=== PATIENT | female | born 1965 | race Two or more races ===

== ENCOUNTER 2020-08-07 13:23 | Outpatient (REF) | payer OTHER, SELFPAY | END 2020-08-07 13:24 | disposition home or self-care (01) | LOC: HO.LAB 13:23 | PROVIDERS: PCP Internal Medicine; Visit Provider Internal Medicine | DX: Z20.828 Contact with and (suspected) exposure to other viral communicable diseases (principal) | CPT/HCPCS: C9803; U0003 ==

== ENCOUNTER → 2020-09-17 13:11 | Outpatient (BNVA) | payer OTHER, SELFPAY | PROVIDERS: PCP Internal Medicine; Visit Provider Internal Medicine Cardiovascular Disease | DX: R00.2 Palpitations (principal); I49.3 Ventricular premature depolarization; E11.65 Type 2 diabetes mellitus with hyperglycemia; Z79.84 Long term (current) use of oral hypoglycemic drugs; E66.9 Obesity, unspecified; Z68.41 Body mass index [BMI] 40.0-44.9, adult | CPT/HCPCS: 93005 ==

== ENCOUNTER → 2020-10-14 08:51 | Outpatient (REF) | payer OTHER, SELFPAY ==
--- NOTE | 2020-10-14 08:53 | CA_ITS ---
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 The visually estimated ejection fraction is between 55-60%. - No obvious valvular pathology seen on this study. Findings Left Ventricle Normal left ventricular cavity size. There is normal left ventricular wall thickness. The left ventricular systolic function is normal. The visually estimated ejection fraction is between 55-60%. There is no evidence of regional wall motion abnormalities. Diastolic function is normal for age. Right Ventricle Normal right ventricular cavity size and systolic function. Atria The left atrium is normal in size. The right atrium is normal in size. Aortic Valve There is a normal trileaflet aortic valve. There is no aortic valve stenosis. There is no aortic valve regurgitation. Mitral Valve The mitral valve appears normal. There is trace mitral valve regurgitation. There is no mitral valve stenosis. Pulmonic Valve The pulmonic valve was not well visualized. Tricuspid Valve Normal tricuspid valve structure. There is trace tricuspid valve regurgitation. The pulmonary artery systolic pressure is normal. Great Vessels The aortic annulus, sinuses of valsalva, and asc aorta are normal in size. Venous The inferior vena cava is normal in size and collapses greater than 50% with inspiration. Pericardium/Pleural There is no evidence of pericardial effusion. Prior Study Comparison Changes noted compared to prior study dated: 01/21/2018. Recommendations, Care & Conclusions No obvious valvular pathology seen on this study. Measurements 2D Linear Measurements IVSd: 0.86 0.6-0.9/0.6-1.0 cm LVIDd: 5.38 3.9-5.3/4.2-5.9 cm LVIDd Index: 2.45 2.4-3.2/2.2-3.1 cm/m2 LVIDs: 3.57 2.0-3.6 cm LVPWd: 0.93 0.7-1.1 cm Ao Root: 2.70 2.1-3.5 cm LA Diam: 3.10 2.7-3.8/3.0-4.0 cm LAIDs Index: 1.41 1.5-2.3 cm/m2 LV Mass: 220.92 67-162/88-224 g LV Mass Index: 100.42 43-95/49-115 g/m2 LVOT Diam: 2.20 3.0+(-)1.3 cm 2D Systolic Function EF 4C: 61.60 >55% EF 2C: 67.10 >55% Mitral Valve MV Pk E: 0.46 MV PK A: 0.82 MV Decel Time: 76.00 E/A: 0.60 E'Lateral: 8.03 E'Medial: 8.12 E/E' Med: 5.60 E/E' Lat: 5.70 PHT: 23.00 MVA PHT: 9.57 Decel [place]: 6.13 Aortic Valve AoV Pk Stephane: 1.14 AoV Pk Grad: 5.00 LVOT LVOT Pk Stephane: 0.87 LVOT Mn Stephane: 0.56 LVOT VTI: 0.19 LVOT Pk Grad: 3.00 LVOT Mn Grad: 2.00 LVOT Diam: 2.20 LVOT Area: 3.80 Diastolic Function MV Pk E: 0.46 MV Pk A: 0.82 E/A: 0.60 E'Medial: 8.12 E/E' Med: 5.60 E' Laterial: 8.03 E/E' Lat: 5.70 Tricuspid Valve TR Pk Stephane: 2.00 TR Pk Grad: 16.00 RA Press: 3.00 RVSP: 19.00 Great Vessels Aorta Ao Root-2D: 2.70 2.0-3.7 cm Ao Asc: 3.10 2.1-3.4 cm Updated in Other Vendor System with Status of Final Eliu Louise MD electronically signed on 10/14/2020 12:57:57 PM with status of Final
--- NOTE | 2020-10-14 08:53 | ECG_ITS ---
Hook-up date: 2020-10-14 09:53:00 Duration: 47:59:00 Test Indications: VENTRICULAR PREMATURE DEPOLARIZA Medications: 519509 QRS complexes 81314 Ventricular ectopics which represent 14 % of total QRS comp. 33 Supraventricular ectopics which represent <1 % of total QRS comp. * Paced QRS complexs which represent % of total QRS comp. VENTRICULAR ECTOPY 29033 Isolated 3 Bigeminal Cycles 92 Couplets 0 Runs 0 Beats in Runs 0 Beats LONGEST at 0 BPM at :: -- 0 Beats FASTEST at 0 BPM at :: -- SUPRAVENTRICULAR ECTOPY 33 Isolated 0 Couplets 0 Runs 0 Beats in Runs * Beats LONGEST at * BPM at :: -- * Beats FASTEST at * BPM at :: -- HEART RATES 60 MIN at 22:46:11 2020-10-14 78 AVG 126 MAX at 15:28:47 2020-10-14 LONGEST RR 1.5760 secs at 04:08:11 2020-10-15 S-T LEVELS Channel 1 - 128 mm at 09:53:00 2020-10-14 - 128 mm at 09:53:00 2020-10-14 Channel 2 - 128 mm at 09:53:00 2020-10-14 - 128 mm at 09:53:00 2020-10-14 Channel 3 - 128 mm at 02:91:21 -- - 128 mm at 02:91:21 Basic rhythm Normal sinus rhythm No long pause or profound bradycardia Frequent Premature ventricular complexes , 14% of total beats, unifocal Frequent couplets Patient did not report any symptoms in the diary Referred By: Antony Simpson Overread By: ANTONY SIMPSON MD
== END ==
LOC: HO.CARD 08:51
PROVIDERS: Visit Provider Internal Medicine Cardiovascular Disease
DX: I49.3 Ventricular premature depolarization (principal); R00.2 Palpitations; E11.65 Type 2 diabetes mellitus with hyperglycemia
CPT/HCPCS: 93225; 93226; 93306

== ENCOUNTER 2020-11-18 16:14 | Outpatient (REF) | payer OTHER, SELFPAY ==
--- NOTE | ~2020-11-18 | MM_ITS ---
EXAMINATION: MM SCREENING DIGITAL BREAST TOMOSYNTHESIS, BILATERAL CLINICAL INFORMATION: Screening. Asymptomatic. The lifetime risk of breast cancer based on the Tyrer-Cuzick Model is 8%. COMPARISON: Mammography: 11/13/2019, 08/22/2018 TECHNIQUE: Digital breast tomosynthesis is performed in both the craniocaudal and mediolateral oblique views along with computer-aided detection (CAD). Synthesized 2D images are generated from the tomosynthesis. FINDINGS: There are scattered areas of fibroglandular density (ACR BI-RADS breast composition Category b). There are no significant masses, abnormal calcifications, or other abnormalities. There are benign-appearing grouped coarse calcifications again seen posterior inferior right breast. MM/MM tomosynthesis screening BI IMPRESSION: No significant changes from prior studies. ASSESSMENT: BI-RADS 2: Benign RECOMMENDATION: Routine annual mammography screening. This patient's information was entered into a reminder system with a target due date for their next mammogram.
== END 2020-11-18 16:15 | disposition home or self-care (01) ==
LOC: HO.MAMMO 16:14
PROVIDERS: PCP Internal Medicine; Visit Provider Internal Medicine
DX: Z12.31 Encounter for screening mammogram for malignant neoplasm of breast (principal)
CPT/HCPCS: 77063; 77067

== ENCOUNTER 2021-01-02 08:54 | Outpatient (REF) | payer OTHER, SELFPAY ==
[2021-01-02 09:50] LABS: MANUAL DIFF FLAG NO
[2021-01-02 09:54] LABS: Basophils Percent Auto 0.4 % (0-2); Eosinophils Absolute Auto 0.2 X10*3/uL (0.0-0.4); Eosinophils Percent Auto 2.5 % (0-4); Hematocrit 38.8 % (37-47); Hemoglobin 12.8 g/dl (12.0-16.0); Imm Gran Abs Auto 0.02 X10*3/uL (0.00-0.03); Imm Gran Pct Auto 0.3 % (0.0-0.4); Lymphocytes Absolute Auto 3.2 X10*3/uL (1.2-4.9); Lymphocytes Percent Auto 46.5 % (20-40); Mean Corpuscular Hemoglobin 31.8 pg (27.0-33.0); Mean Corpuscular Volume 96.3 fL (80-98); Mean Platelet Volume 10.7 fL (9.4-12.3); Monocytes Absolute Auto 0.6 X10*3/uL (0.1-1.2); Monocytes Percent Auto 8.8 % (2-11); Neutrophils Absolute Auto 2.8 X10*3/uL (2.0-8.3); Neutrophils Percent Auto 41.5 % (45-73); Platelet Count 180 X10*3/uL (160-400); Red Blood Count 4.03 X10*6/uL (4.20-5.50); Red Cell Distribution Width 14.6 % (11.0-16.0); White Blood Count 6.8 X10*3/uL (4.8-10.8)
[2021-01-02 10:01] LABS: Glucose Urine UA NEG (NEG); Leukocyte Esterase Urine NEG (NEG); Nitrite Urine NEG (NEG); PH 5.5 (5.0-8.0); Specific Gravity - Urine >= 1.030 (1.005-1.025); Urine Blood NEG (NEG); Urine Ketones NEG (NEG); Urine Protein NEG (NEG-TRACE)
[2021-01-02 10:03] LABS: Estimated Average Glucose 140 mg/dL; Hemoglobin A1c % 6.5 %
[2021-01-02 10:13] LABS: Appearance Urine CLEAR; Color Urine YELLOW
[2021-01-02 10:16] LABS: Alanine Aminotransferase 28 U/L (0-31); Albumin Level 3.8 g/dL (3.5-5.0); Alkaline Phosphatase 90 U/L (39-117); Anion Gap 11 (12-20); Aspartate Amino Transferase 35 U/L (5-31); Bilirubin Total 0.6 mg/dL (0.0-1.0); Blood Urea Nitrogen 10 mg/dL (9-16); Calcium 9.3 mg/dL (8.4-10.2); Carbon Dioxide 29 mmol/L (22-29); Chloride 106 mmol/L (96-108); Cholesterol 191 mg/dL; Estimated Glomerular Filt Rate > 60; Glucose Random 144 mg/dL (60-115); HDL Cholesterol 65 mg/dL; LDL Cholesterol Calculated 93 mg/dl; Potassium 4.6 mmol/L (3.3-5.1); Sodium 141 mmol/L (135-145); Total Protein 6.6 g/dL (6.5-8.0); Triglycerides 169 mg/dL
[2021-01-02 10:19] LABS: Mucus Urine 1+ /LPF; RBC Urine 0 /HPF (0); Squamous Epithelial Cell Urine TRACE /LPF
[2021-01-02 10:40] LABS: Free T4 (Free Thyroxine) 1.04 ng/dL (0.71-1.85); Thyroid Stimulating Hormone 1.38 uIU/mL (0.32-4.0)
== END 2021-01-02 08:55 | disposition home or self-care (01) ==
LOC: HO.LAB 08:54
PROVIDERS: PCP Internal Medicine; Visit Provider Internal Medicine
DX: E78.00 Pure hypercholesterolemia, unspecified (principal); E11.65 Type 2 diabetes mellitus with hyperglycemia; R00.2 Palpitations
CPT/HCPCS: 36415; 80053; 80061; 81001; 83036; 84439; 84443; 85025

== ENCOUNTER → 2021-03-19 12:48 | Outpatient (BNVA) | payer OTHER, SELFPAY | PROVIDERS: PCP Internal Medicine; Visit Provider Nurse Practitioner Family ==

== ENCOUNTER 2022-01-14 11:04 | Outpatient (REF) | payer OTHER, SELFPAY ==
[2022-01-14 11:33] LABS: MANUAL DIFF FLAG NO
[2022-01-14 12:02] LABS: Basophils Percent Auto 0.5 % (0-2); Eosinophils Absolute Auto 0.1 X10*3/uL (0.0-0.4); Eosinophils Percent Auto 2.1 % (0-4); Hematocrit 41.5 % (37.0-47.0); Hemoglobin 13.7 g/dl (12.0-16.0); Imm Gran Abs Auto 0.02 X10*3/uL (0.00-0.03); Imm Gran Pct Auto 0.3 % (0.0-0.4); Lymphocytes Absolute Auto 2.5 X10*3/uL (1.2-4.9); Lymphocytes Percent Auto 40.7 % (20-40); Mean Corpuscular Hemoglobin 31.4 pg (27.0-33.0); Mean Corpuscular Volume 95.2 fL (80.0-98.0); Mean Platelet Volume 11.2 fL (9.4-12.3); Monocytes Absolute Auto 0.5 X10*3/uL (0.1-1.2); Monocytes Percent Auto 7.7 % (2-11); Neutrophils Percent Auto 48.7 % (45-73); Platelet Count 180 X10*3/uL (160-400); Red Blood Count 4.36 X10*6/uL (4.20-5.50); Red Cell Distribution Width 13.9 % (11.0-16.0); White Blood Count 6.1 X10*3/uL (4.8-10.8)
[2022-01-14 12:52] LABS: Alanine Aminotransferase 29 U/L (0-31); Albumin Level 3.8 g/dL (3.5-5.0); Alkaline Phosphatase 91 U/L (39-117); Anion Gap 14 (12-20); Aspartate Amino Transferase 59 U/L (5-31); Bilirubin Total 0.7 mg/dL (0.0-1.0); Blood Urea Nitrogen 11 mg/dL (9-16); Calcium 9.8 mg/dL (8.4-10.2); Carbon Dioxide 28 mmol/L (22-29); Chloride 103 mmol/L (96-108); Cholesterol 192 mg/dL; Estimated Glomerular Filt Rate > 60; Glucose Random 177 mg/dL (60-115); HDL Cholesterol 54 mg/dL; LDL Cholesterol Calculated 99 mg/dl; Potassium 5.6 mmol/L (3.3-5.1); Sodium 139 mmol/L (135-145); Triglycerides 197 mg/dL
[2022-01-14 12:55] LABS: Free T4 (Free Thyroxine) 1.15 ng/dL (0.71-1.85); Thyroid Stimulating Hormone 1.26 uIU/mL (0.32-4.0); Vitamin D 25-OH Total 34.9 ng/mL (>30)
[2022-01-14 13:20] LABS: Estimated Average Glucose 171 mg/dL; Hemoglobin A1c % 7.6 %
[2022-01-14 13:41] LABS: Folate 13.6 ng/mL (> or = 4.0); Vitamin B12 341 pg/mL (200-900)
== END 2022-01-14 11:05 | disposition home or self-care (01) ==
LOC: HO.LAB 11:04
PROVIDERS: PCP Internal Medicine; Visit Provider Internal Medicine
DX: E11.65 Type 2 diabetes mellitus with hyperglycemia (principal); I10 Essential (primary) hypertension; E78.00 Pure hypercholesterolemia, unspecified
CPT/HCPCS: 36415; 80053; 80061; 82043; 82306; 82607; 82746; 83036; 84439; 84443; 85025

== ENCOUNTER 2022-01-23 17:18 | Outpatient (REF) | payer OTHER, SELFPAY ==
[2022-01-23 17:49] LABS: Appearance Urine CLEAR; Color Urine YELLOW; Glucose Urine UA >=1000 MG/DL (NEG); Leukocyte Esterase Urine NEG (NEG); Nitrite Urine NEG (NEG); Specific Gravity - Urine 1.025 (1.005-1.025); Urine Blood NEG (NEG); Urine Ketones NEG (NEG); Urine Protein NEG (NEG-TRACE)
[2022-01-23 18:03] LABS: Squamous Epithelial Cell Urine 2+ /LPF
[2022-01-23 18:04] LABS: Mucus Urine 1+ /LPF; RBC Urine 0-2 /HPF (0); WBC Urine 0-2 /HPF (0-4)
== END 2022-01-23 17:19 | disposition home or self-care (01) ==
LOC: HO.LAB 17:18
PROVIDERS: PCP Internal Medicine; Visit Provider Internal Medicine
DX: R30.0 Dysuria (principal)
CPT/HCPCS: 81001

== ENCOUNTER 2022-04-23 16:36 | Outpatient (REF) | payer OTHER, SELFPAY ==
[2022-04-24 03:18] LABS: CT PCR NOT DETECTED (Not Detect.); NG PCR NOT DETECTED (Not Detect.)
[2022-04-24 09:22] LABS: BV Int Neg Control Negative (Negative); BV Int Pos Control Positive (Positive)
[2022-04-25 14:37] LABS: HPV mRNA E6/E7 rflx Not Detected (Not Detected)
== END 2022-04-23 16:37 | disposition home or self-care (01) ==
LOC: HO.LAB 16:36
PROVIDERS: Visit Provider Internal Medicine
DX: Z12.4 Encounter for screening for malignant neoplasm of cervix (principal); Z11.51 Encounter for screening for human papillomavirus (HPV); Z11.3 Encounter for screening for infections with a predominantly sexual mode of transmission
CPT/HCPCS: 87480; 87491; 87510; 87591; 87624; 87660; 88142

== ENCOUNTER 2022-05-04 14:16 | Outpatient (REF) | payer OTHER, SELFPAY ==
--- NOTE | ~2022-05-04 | MM_ITS ---
EXAMINATION: MM SCREENING DIGITAL BREAST TOMOSYNTHESIS, BILATERAL CLINICAL INFORMATION: Screening. Asymptomatic. The lifetime risk of breast cancer based on the Tyrer-Cuzick Model is 7%. COMPARISON: Mammography: 11/18/2020, 11/13/2019, 08/22/2018 TECHNIQUE: Digital breast tomosynthesis is performed in both the craniocaudal and mediolateral oblique views along with computer-aided detection (CAD). Synthesized 2D images are generated from the tomosynthesis. FINDINGS: There are scattered areas of fibroglandular density (ACR BI-RADS breast composition Category b). There is no interval mass or architectural abnormality or developing density. Grouped calcifications posterior central 5:30 o'clock right breast are slightly coarser, suggesting fibroadenomatous changes. There are no suspicious calcifications. The axilla and skin contours are unremarkable. MM/MM tomosynthesis screening BI IMPRESSION: No significant changes from prior exam. ASSESSMENT: BI-RADS 2: Benign RECOMMENDATION: Routine annual mammography screening. This patient's information was entered into a reminder system with a target due date for their next mammogram.
== END 2022-05-04 14:17 | disposition home or self-care (01) ==
LOC: HO.MAMMO 14:16
PROVIDERS: PCP Internal Medicine; Visit Provider Internal Medicine
DX: Z12.31 Encounter for screening mammogram for malignant neoplasm of breast (principal)
CPT/HCPCS: 77063; 77067

== ENCOUNTER 2022-08-17 09:14 | Outpatient (REF) | payer OTHER, SELFPAY | END 2022-08-17 09:15 | disposition home or self-care (01) | LOC: HO.LNP 09:14 | PROVIDERS: PCP Internal Medicine; Visit Provider Obstetrics & Gynecology | DX: R87.612 Low grade squamous intraepithelial lesion on cytologic smear of cervix (LGSIL) (principal) | CPT/HCPCS: 57454; 88305 ==

== ENCOUNTER 2023-04-29 16:18 | Outpatient (AMB) | payer OTHER, SELFPAY ==
[2023-04-29 16:36] VITALS: BP 124/76; PULSE 80; O2SAT 98; BMI 39.1
--- NOTE | 2023-04-29 16:36 | A.OFFPC_ITS ---
Vital Signs 04/29/23 16:36 Height 5 ft 6 in Weight 242 lb BMI 39.1 BP 124/76 Blood Pressure Location Lt brachial Position Sitting Pulse 80 Pulse Source Pulse Oximeter Pulse Oximetry (%) 98 Oxygen Delivery Method Room Air Intake Visit Reasons: Physical exam Allergies No Known Allergies [No Known Allergies*] Allergy (Verified 04/29/23 16:36) Medication List - Last Reconciled 04/29/23 by Demetrio Martinez MD blood pressure monitor (Blood Pressure Kit) As directed cholecalciferol (vitamin D3) 50 mcg PO DAILY 90 days dulaglutide (Trulicity) 3 mg (0.5 mL) subcut QWEEK flash glucose sensor (FreeStyle [place] 14 Day Sensor kit) As directed Tobacco use date assessed: 10/26/22 Dental Screening Dental Screen Date: 04/29/23 Did you have a dental visit in the last 12 months?: Yes Did you have a dental problem in the last 6 months where you did not have access to dental care?: No Was dental information given to patient?: Patient has dentist HPI Physical exam HPI Details 57-year-old morbidly obese female with diabetes mellitus hypertension hypercholesterolemia GERD coming in for physical exam last seen in October 2022. Patient has mammogram is due this month colonoscopy is up-to-date. Patient is here for physical exam. BS - so stopped metformin PFSH Medical History (Updated 04/29/23 @ 17:24 by Demetrio Martinez MD) Annual physical exam Breast cancer screening by mammogram Cervical cancer screening Fatty liver GERD (gastroesophageal reflux disease) Hypercholesterolemia Hyperkalemia Hypertension Mass of left lower leg Mild sleep apnea Obesity Palpitations PVC (premature ventricular contraction) Sebaceous cyst of eyelid Type 2 diabetes mellitus with hyperglycemia Vitamin D deficiency Surgical History History of cholecystectomy Family History (Updated 04/29/23 @ 16:38 by Andree Lehman CMA) Father No problems noted. Mother Hypertension Sister Schizophrenia Mental health disorder Paternal Grandfather No problems noted. Paternal Grandmother No problems noted. Maternal Grandmother No problems noted. Maternal Grandfather No problems noted. Social History (Updated 04/29/23 @ 17:29 by Demetrio Martinez MD) Housing: House Alcohol intake: current Alcohol intake frequency: holidays/special occasions only Patient Tobacco Use Status: Never used Tobacco e-Cigarette/Vaping Use: Never Used Second Hand Smoke Exposure: No service: No Current occupational status: employed Cognitive needs: No Hearing needs: No Vision needs: No Female Reproductive History Menstrual Age of Menarche: 11 Questionnaire PHQ-9 Over the last 2 weeks, how often have you been bothered by any of the following problems? 1. Little interest or pleasure in doing things: not at all 2. Feeling down, depressed, or hopeless: not at all 3. Trouble falling or staying asleep, or sleeping too much: not at all 4. Feeling tired or having little energy: not at all 5. Poor appetite or overeating: not at all 6. Feeling bad about yourself - or that you are a failure or have let yourself or your family down: not at all 7. Trouble concentrating on things, such as reading the newspaper or watching television: not at all 8. Moving or speaking so slowly that other people could have noticed. Or the opposite - being so fidgety or restless that you have been moving around a lot more than usual: not at all 9. Thoughts that you would be better off or of hurting yourself in some way: not at all Total score: 0 Depression Screening Interpretation: Negative Source: Developed by Drs. Jeff Howell, Donald Jefferson and colleagues, with an educational bhupinder from [employer]. Thrive Questionnaire Date Thrive assessed: 10/26/22 AUDIT C Alcohol Use Questionnaire (AUDIT-C) 1. How often do you have a drink containing alcohol?: Monthly or less 2. How many drinks containing alcohol do you have on a typical day when you are drinking?: 1 or 2 3. How often do you have six or more drinks on one occasion?: Never Total Score: 1 MARCELA-7 AMB Questionnaire MARCELA-7 Date MARCELA - 7 assessed: 10/26/22 Source: Developed by Drs. Jeff Howell, Donald Jefferson and colleagues, with an educational bhupinder from [employer]. Review of Systems Const Denies poor appetite and Denies weakness Eyes Denies no additional complaints ENT Reports Normal hearing present, Denies dizziness, Denies nasal congestion, Denies tinnitus and Denies sore throat Card Denies chest pain, Denies syncope, Denies rapid heart rate and Denies dyspnea Resp Denies cough and Denies dyspnea GI Denies change in stool character, Reports constipation, Denies diarrhea, Denies nausea and Denies vomiting Denies urinary frequency, Denies difficulty voiding and Denies dysuria Neuro Reports Normal hearing present, Denies confusion, Denies dizziness, Denies syncope and Denies weakness Psych Denies confusion Physical exam (Primary Care) Vital Signs: Last Vital Signs Pulse 80 04/29/23 16:36 BP 124/76 04/29/23 16:36 Pulse Ox 98 04/29/23 16:36 Oxygen Delivery Method Room Air 04/29/23 16:36 BMI result Body Mass Index 39.1 Tobacco/Smoking Status: Tobacco use Status Tobacco use date assessed 10/26/22 04/29/23 16:39 Patient Tobacco Use Status Never used Tobacco 04/29/23 16:39 e-Cigarette/Vaping Use Never Used 04/29/23 16:39 PHQ-9: PHQ-9 Score PHQ-9: Total score 0 04/29/23 17:16 Depression Screening Interpretation: Negative Thrive Assessment: Date of Thrive Assessment Date Thrive assessed 10/26/22 04/29/23 16:39 Const General: No confusion Orientation/consciousness: No confusion HENMT Head: Yes normocephalic Ears: external ears normal and TM's normal bilaterally Face and sinus: Yes normal facial exam Mouth: moist mucous membranes Throat: Yes tonsils normal Eyes Conjunctivae: conjunctivae normal Pupils: Equal, round and reactive pupils present and Pupil accommodation reflex normal Direct Ophthalmoscopy: normal light reflex Neck Neck: No lymphadenopathy Thyroid: Thyroid normal Chest Chest palpation & inspection: normal inspection of the chest Resp Effort & Inspection: normal respiratory effort and no audible wheezes Auscultation: clear to auscultation bilaterally, no crackles, no wheezes and lung sounds not diminished Cardio Rate: regular rate Rhythm: regular rhythm Peripheral pulses: radial pulses present and dorsalis pedis present GI Palpation (GI): no masses Auscultation: normal bowel sounds and normoactive bowel sounds Rectal Exam - Female: deferred Skin General skin exam: no rashes or lesions noted Rashes: no rashes Neuro General: No confusion Cranial nerves: Yes Equal, round and reactive pupils present and Yes Normal hearing present Cognition (Neuro): normal cognition Gait exam (Neuro): Normal gait present Motor exam (neuro): 5/5 motor strength present throughout Deep tendon reflexes (DTR's): Right brachioradialis reflex intensity grade: 2+, Left brachioradialis reflex intensity grade: 2+, Right patellar reflex intensity grade: 2+ and Left patellar reflex intensity grade: 2+ Extrem General: No edema Results AMB Hemoglobin A1c AMB Hemoglobin A1c 6.6 % Last Edit by Andree Lehman CMA on 04/29/23 17 :16 Results Reviewed Results Reviewed: Laboratory Last Values Hgb A1c (Clinic) 6.6 % (4.0-6.0) H 04/29/23 16:39 Assessment and Plan Assessment & Plan (1) Annual physical exam: Code(s): Z00.00 - Encounter for general adult medical examination without abnormal findings (2) Type 2 diabetes mellitus with hyperglycemia: Comment: decline HENRIETTA inhibitor, EYE [facility] [place] [facility] doctor Code(s): E11.65 - Type 2 diabetes mellitus with hyperglycemia Qualifiers: Diabetes mellitus long-term insulin use: without buttermaker continuous churn use Qualified Code(s): E11.65 - Type 2 diabetes mellitus with hyperglycemia Plan: Decrease the amount of carbohydrate intake, pasta, bread, rice and potatoes are all sugar and that is aside from all the sweet stuff, remember that fruits are good but they are Sweet also. Hemoglobin A1c goal of less than 6.5 patient is presently on Trulicity (3) Obesity: Code(s): E66.9 - Obesity, unspecified Plan: Diet and exercise (4) Hypercholesterolemia: Code(s): E78.00 - Pure hypercholesterolemia, unspecified Plan: Avoid fried foods, chicken skin, eggs, butter margarine, pastries and meat. Be it pork or beef they have a lot of cholesterol LDL goal of less than 100 and triglyceride of less than 150 reminded the need to have blood work (5) Hypertension: Comment: Echo normal LV January 2018, echo normal LV September 2020 Holter normal Code(s): I10 - Essential (primary) hypertension Qualifiers: Hypertension type: essential hypertension Qualified Code(s): I10 - Essential (primary) hypertension Plan: Continue with blood pressure medication. Decrease salt intake and exercise presently on metoprolol (6) Fatty liver: Code(s): K76.0 - Fatty (change of) liver, not elsewhere classified Plan: Low-fat diet and exercise (7) GERD (gastroesophageal reflux disease): Code(s): K21.9 - Gastro-esophageal reflux disease without esophagitis Plan: Avoid the foods that causes that usually spicy foods, tomato products, juices, coffee, soda and foods that your sensitive to. After eating do not lie down, allow 3-4 hours before in lie down. And keep the head of bed above 30 degrees to avoid the acid from going up. (8) Generalized anxiety disorder: Code(s): F41.1 - Generalized anxiety disorder Orders: Orders AMB Hemoglobin A1c Today Z13.9 - Encounter for screening, unspecified Coding Level of Care Code Est Pt Prev Care 40-64y(65608) Diagnoses Annual physical exam Z00.00 Type 2 diabetes mellitus with hyperglycemia E11.65 Diabetes mellitus buttermaker continuous churn insulin use: without buttermaker continuous churn use Obesity E66.9 Hypercholesterolemia E78.00 Hypertension I10 Hypertension type: essential hypertension Fatty liver K76.0 GERD (gastroesophageal reflux disease) K21.9 Generalized anxiety disorder F41.1
== END 2023-04-29 17:48 | disposition home or self-care (01) ==
PROVIDERS: PCP Internal Medicine; Visit Provider Internal Medicine
DX: Z00.00 Encounter for general adult medical examination without abnormal findings (principal); E11.65 Type 2 diabetes mellitus with hyperglycemia; I10 Essential (primary) hypertension; K21.9 Gastro-esophageal reflux disease without esophagitis; E66.9 Obesity, unspecified; E78.00 Pure hypercholesterolemia, unspecified; K76.0 Fatty (change of) liver, not elsewhere classified; F41.1 Generalized anxiety disorder
CPT/HCPCS: 83036; 99396

== ENCOUNTER 2023-07-01 14:22 | Outpatient (AMB) | payer OTHER, SELFPAY ==
[2023-07-01 14:40] VITALS: BP 130/68; PULSE 63; O2SAT 98; BMI 38.6
--- NOTE | 2023-07-01 14:40 | A.OFFPC_ITS ---
Vital Signs 07/01/23 14:40 Height 5 ft 6 in Weight 239 lb BMI 38.6 BP 130/68 Blood Pressure Location Lt brachial Position Sitting Pulse 63 Pulse Source Pulse Oximeter Pulse Oximetry (%) 98 Oxygen Delivery Method Room Air Intake Visit Reasons: Follow up DM Allergies No Known Allergies [No Known Allergies*] Allergy (Verified 07/01/23 14:40) Medication List - Last Reconciled 07/01/23 by Demetrio Martinez MD blood pressure monitor (Blood Pressure Kit) As directed cholecalciferol (vitamin D3) 50 mcg PO DAILY 90 days dulaglutide (Trulicity) 3 mg (0.5 mL) subcut QWEEK 90 days flash glucose sensor (FreeStyle Maria Del Carmen 14 Day Sensor kit) As directed Tobacco use date assessed: 10/26/22 Dental Screening Dental Screen Date: 07/01/23 Did you have a dental visit in the last 12 months?: Yes Did you have a dental problem in the last 6 months where you did not have access to dental care?: No Was dental information given to patient?: Patient has dentist HPI Follow up DM HPI Details 58-year-old obese female with diabetes m ellitus hypercholesterolemia hypertension fatty liver GERD and generalized anxiety disorder last seen in April 2023. Patient is here for follow-up. Patient is due for mammogram and colonoscopy is still up-to-date.. Patient has been taking the Trulicity doing good and advised to eat healthier now and keep moving so that when we start taking of the medication if she is ready then she can maintain her weight. Otherwise discussed about blood work that needs to be done. [facility] Medical History Breast cancer screening by mammogram Cervical cancer screening Annual physical exam Mass of left lower leg Hyperkalemia Sebaceous cyst of eyelid Palpitations PVC (premature ventricular contraction) Mild sleep apnea GERD (gastroesophageal reflux disease) Fatty liver Hypertension Hypercholesterolemia Type 2 diabetes mellitus with hyperglycemia Vitamin D deficiency Obesity Surgical History History of cholecystectomy Family History Father No problems noted. Mother Hypertension Sister Schizophrenia Mental health disorder Paternal Grandfather No problems noted. Paternal Grandmother No problems noted. Maternal Grandmother No problems noted. Maternal Grandfather No problems noted. Social History Housing: House Alcohol intake: current Alcohol intake frequency: holidays/special occasions only Patient Tobacco Use Status: Never used Tobacco e-Cigarette/Vaping Use: Never Used Second Hand Smoke Exposure: No service: No Current occupational status: employed Cognitive needs: No Hearing needs: No Vision needs: No Female Reproductive History Menstrual Age of Menarche: 11 Questionnaire PHQ-9 Over the last 2 weeks, how often have you been bothered by any of the following problems? 1. Little interest or pleasure in doing things: not at all 2. Feeling down, depressed, or hopeless: not at all 3. Trouble falling or staying asleep, or sleeping too much: not at all 4. Feeling tired or having little energy: not at all 5. Poor appetite or overeating: not at all 6. Feeling bad about yourself - or that you are a failure or have let yourself or your family down: not at all 7. Trouble concentrating on things, such as reading the newspaper or watching television: not at all 8. Moving or speaking so slowly that other people could have noticed. Or the opposite - being so fidgety or restless that you have been moving around a lot more than usual: not at all 9. Thoughts that you would be better off or of hurting yourself in some way: not at all Total score: 0 Depression Screening Interpretation: Negative Depression Screening Done: Yes Source: Developed by Drs. Jeff Howell, Klaudia Ramirez, Donald Phillip and colleagues, with an educational bhupinder from [employer]. Thrive Questionnaire Date Thrive assessed: 10/26/22 AUDIT C Alcohol Use Questionnaire (AUDIT-C) 1. How often do you have a drink containing alcohol?: Monthly or less 2. How many drinks containing alcohol do you have on a typical day when you are drinking?: 1 or 2 3. How often do you have six or more drinks on one occasion?: Never Total Score: 1 MARCELA-7 AMB Questionnaire MARCELA-7 Date MARCELA - 7 assessed: 10/26/22 Source: Developed by Drs. Jeff Howell, Donald Jefferson and colleagues, with an educational bhupinder from [employer]. Physical exam (Primary Care) Vital Signs: Last Vital Signs Pulse 63 07/01/23 14:40 BP 130/68 07/01/23 14:40 Pulse Ox 98 07/01/23 14:40 Oxygen Delivery Method Room Air 07/01/23 14:40 BMI result Body Mass Index 38.6 Tobacco/Smoking Status: Tobacco use Status Tobacco use date assessed 10/26/22 07/01/23 14:44 Patient Tobacco Use Status Never used Tobacco 07/01/23 14:44 e-Cigarette/Vaping Use Never Used 07/01/23 14:44 PHQ-9: PHQ-9 Score PHQ-9: Total score 0 07/01/23 14:44 Depression Screening Interpretation: Negative Thrive Assessment: Date of Thrive Assessment Date Thrive assessed 10/26/22 07/01/23 14:44 Const General: alert; No acute distress Eyes Conjunctivae: conjunctivae normal Resp Auscultation: clear to auscultation bilaterally Cardio Rate: regular rate Rhythm: regular rhythm GI Inspection: Yes normal to inspection Extrem General: Yes normal to inspection and No edema Assessment and Plan Assessment & Plan (1) Type 2 diabetes mellitus with hyperglycemia: Comment: decline HENRIETTA inhibitor, [facility] Code(s): E11.65 - Type 2 diabetes mellitus with hyperglycemia Qualifiers: Diabetes mellitus correction insulin use: without correction use Qualified Code(s): E11.65 - Type 2 diabetes mellitus with hyperglycemia Plan: Decrease the amount of carbohydrate intake, pasta, bread, rice and potatoes are all sugar and that is aside from all the sweet stuff, remember that fruits are good but they are Sweet also. Hemoglobin A1c goal of less than 6.5 (2) Hypercholesterolemia: Code(s): E78.00 - Pure hypercholesterolemia, unspecified Plan: Avoid fried foods, chicken skin, eggs, butter margarine, pastries and meat. Be it pork or beef they have a lot of cholesterol LDL goal of less than 100 and triglyceride of less than 150. Patient is reminded about blood work (3) Hypertension: Comment: Echo normal LV January 2018, echo normal LV September 2020 Holter normal Code(s): I10 - Essential (primary) hypertension Qualifiers: Hypertension type: essential hypertension Qualified Code(s): I10 - Essential (primary) hypertension Plan: Continue with blood pressure medication. Decrease salt intake and exercise (4) Fatty liver: Code(s): K76.0 - Fatty (change of) liver, not elsewhere classified Plan: Low-fat diet and exercise (5) GERD (gastroesophageal reflux disease): Code(s): K21.9 - Gastro-esophageal reflux disease without esophagitis Plan: Avoid the foods that causes that usually spicy foods, tomato products, juices, coffee, soda and foods that your sensitive to. After eating do not lie down, allow 3-4 hours before in lie down. And keep the head of bed above 30 degrees to avoid the acid from going up. (6) Obesity: Code(s): E66.9 - Obesity, unspecified Plan: Keep active, diet and exercise Medications: Changed From dulaglutide (Trulicity) 3 mg (0.5 mL) subcut QWEEK 2 mL 3RF E11.65 - Type 2 diabetes mellitus with hyperglycemia To dulaglutide (Trulicity) 3 mg (0.5 mL) subcut QWEEK 90 days 6.5 mL 3RF E11.65 - Type 2 diabetes mellitus with hyperglycemia Refilled flash glucose sensor (FreeStyle Maria Del Carmen 14 Day Sensor kit) As directed 6 kits 3RF E11.65 - Type 2 diabetes mellitus with hyperglycemia, I10 - Essential (primary) hypertension Coding Level of Care Code Est Pt Level 4 (62840) Diagnoses Type 2 diabetes mellitus with hyperglycemia, without long-term current use of insulin E11.65 Diabetes mellitus correction insulin use: without correction use Hypercholesterolemia E78.00 Essential hypertension I10 Hypertension type: essential hypertension Fatty liver K76.0 GERD (gastroesophageal reflux disease) K21.9 Obesity E66.9
== END 2023-07-01 15:16 | disposition home or self-care (01) ==
PROVIDERS: PCP Internal Medicine; Visit Provider Internal Medicine
DX: E11.65 Type 2 diabetes mellitus with hyperglycemia (principal); E78.00 Pure hypercholesterolemia, unspecified; I10 Essential (primary) hypertension; K76.0 Fatty (change of) liver, not elsewhere classified; K21.9 Gastro-esophageal reflux disease without esophagitis; E66.9 Obesity, unspecified; Z68.38 Body mass index [BMI] 38.0-38.9, adult
CPT/HCPCS: 99214

== ENCOUNTER 2023-09-09 10:24 | Outpatient (REF) | payer OTHER, SELFPAY ==
[2023-09-16 07:53] LABS: HPV mRNA E6/E7 rflx Not Detected (Not Detected)
== END 2023-09-09 10:25 | disposition home or self-care (01) ==
LOC: HO.LNP 10:24
PROVIDERS: PCP Internal Medicine; Visit Provider Obstetrics & Gynecology
DX: Z01.419 Encounter for gynecological examination (general) (routine) without abnormal findings (principal); Z11.51 Encounter for screening for human papillomavirus (HPV)
CPT/HCPCS: 87624; 88142

== ENCOUNTER 2023-09-09 10:24 | Outpatient (AMB) | payer OTHER, SELFPAY ==
[2023-09-09 10:25] VITALS: BP 110/78; BMI 38.4
--- NOTE | 2023-09-09 10:25 | A.OFFVIS_ITS ---
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 No complaints. Last Pap/HPV was LSIL/HPV negative, colpo biopsy/ECC was done showed ELDER 1 Last Mammogram was BI-RADS 2 in 05/11 Last Colonoscopy was in 11/07, the recommendation was to repeat in 7 years [facility] Medical History Breast cancer screening by mammogram Cervical cancer screening Annual physical exam Mass of left lower leg Hyperkalemia Sebaceous cyst of eyelid Palpitations PVC (premature ventricular contraction) Mild sleep apnea GERD (gastroesophageal reflux disease) Fatty liver Hypertension Hypercholesterolemia Type 2 diabetes mellitus with hyperglycemia Vitamin D deficiency Obesity Surgical History History of cholecystectomy Family History Father No problems noted. Mother Hypertension Sister Schizophrenia Mental health disorder Paternal Grandfather No problems noted. Paternal Grandmother No problems noted. Maternal Grandmother No problems noted. Maternal Grandfather No problems noted. 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 Sexually active: Yes Sexual orientation: Straight/Heterosexual Gender identity: Female Cognitive needs: No Hearing needs: No Vision needs: No Female Reproductive History Menstrual Age of Menarche: 11 Menopause type: natural Total pregnancies: 4 Full term: 3 Number of Living Children: 3 Date of last pap smear: 04/24/22 History of abnormal pap smear: Yes (ELDER 1) Date of Mammogram: 05/04/22 Review of Systems Const All systems reviewed & are unremarkable except as noted in HPI and below Card Reports as per HPI Resp Reports as per HPI GI Reports as per HPI and Reports no additional complaints Reports as per HPI Physical Exam Vital Signs: BMI result Body Mass Index 38.4 Const General: cooperative, healthy appearing and comfortable Chest Chest palpation & inspection: normal inspection of the chest and normal palpation of entire chest wall Breast/axilla inspection: normal inspection of the breasts and normal inspection of the axillae Breast/axilla palpation: normal palpation of the breasts, normal palpation of the axillae and no axillary lymphadenopathy Resp Effort & Inspection: normal respiratory effort Auscultation: clear to auscultation bilaterally Percussion: percussion normal Cardio Palpation: normal PMI Rate: regular rate Rhythm: regular rhythm Heart sounds: no murmurs and no rubs Peripheral pulses: Peripheral pulses 2+ throughout GI Inspection: Yes normal to inspection Palpation (GI): Soft to palpation, nontender, no guarding, not rigid and No hepatosplenomegaly present Percussion: Yes normal to percussion Auscultation: normal bowel sounds Rectal Exam - Female: deferred General: Yes bladder normal to palpation External Female Exam: No lesion Speculum Exam - Vagina: normal appearance of the vagina, normal palpation, normal vaginal discharge and not erythematous Speculum Exam - Cervix: normal appearance of the cervix and normal palpation Bimanual exam- vagina & uterus: normal bimanual exam, normal palpation, uterine size normal, bladder normal to palpation, consistency normal and normal palpation Bimanual Exam- Adnexa, other: normal adnexae, no masses and no tenderness Assessment & Plan Assessment & Plan (1) Well woman exam: Comment: ELDER 1 in 05/11 Code(s): Z01.419 - Encounter for gynecological examination (general) (routine) without abnormal findings Plan: Co testing done. Counseled the patient about the recommended dietary allowance of 1200 mg of Calcium & 600 IU of vitamin D. Mammogram ordered. The patient was instructed to perform monthly self-breast exams and schedule annual exam in a year. All questions answered and the patient verbalized understanding. Orders: Orders MM screening mammo BI Today Z12.31 - Encounter for screening mammogram for malignant neoplasm of breast Coding Level of Care Code Est Pt Prev Care 40-64y(31061) Diagnoses Well woman exam Z01.419
== END 2023-09-09 10:56 | disposition home or self-care (01) ==
LOC: HO.HWS 10:24
PROVIDERS: PCP Internal Medicine; Visit Provider Obstetrics & Gynecology
DX: Z01.419 Encounter for gynecological examination (general) (routine) without abnormal findings (principal)
CPT/HCPCS: 99396

== ENCOUNTER 2023-09-29 14:40 | Outpatient (REF) | payer OTHER, SELFPAY | END 2023-09-29 14:41 | disposition home or self-care (01) | LOC: HO.LNP 14:40 | PROVIDERS: PCP Internal Medicine; Visit Provider Obstetrics & Gynecology | DX: R87.612 Low grade squamous intraepithelial lesion on cytologic smear of cervix (LGSIL) (principal) | CPT/HCPCS: 57454; 88305 ==

== ENCOUNTER 2023-09-29 14:40 | Outpatient (AMB) | payer OTHER, SELFPAY ==
--- NOTE | 2023-09-29 14:44 | A.OFFVIS_ITS ---
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: No Information Interpreted: non-clinical & clinical Inspector Air Carrier: Inspector Air Carrier Present (Terra CORONADO) Accompanied by: Self / Same As Patient Allergies No Known Allergies [No Known Allergies*] Allergy (Verified 09/29/23 14:54) Post menopausal: Yes HPI HPI Comments History of Present Illness Details Presenting for colposcopy for LGSIL on Pap PFSH Medical History Breast cancer screening by mammogram Cervical cancer screening Annual physical exam Mass of left lower leg Hyperkalemia Sebaceous cyst of eyelid Palpitations PVC (premature ventricular contraction) Mild sleep apnea GERD (gastroesophageal reflux disease) Fatty liver Hypertension Hypercholesterolemia Type 2 diabetes mellitus with hyperglycemia Vitamin D deficiency Obesity Surgical History History of cholecystectomy Family History Father No problems noted. Mother Hypertension Sister Schizophrenia Mental health disorder Paternal Grandfather No problems noted. Paternal Grandmother No problems noted. Maternal Grandmother No problems noted. Maternal Grandfather No problems noted. 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 Sexual orientation: Straight/Heterosexual Gender identity: Female Cognitive needs: No Hearing needs: No Vision needs: No Female Reproductive History Menstrual Age of Menarche: 11 Physical Exam Vital Signs: Last Vital Signs BP 122/76 09/29/23 14:49 BMI result Body Mass Index 38.4 Office Procedures Colposcopy Before the procedure was started discussed with the patient the procedure, alternatives & all the risks associated with the procedure (bleeding, infection, injury to vagina, bladder, vessels, possible need for transfusion with all its risks) then patient signed the consent Pap smear = LGSIL Speculum inserted, acetic acid used Colposcopy done Transformation zone seen, acetowhite lesions identified at 5+6+11+12 o?clock, cervical biopsies taken from 5+6+11+12 o?clock, ECC done afterwards. Vaginoscopy of the upper vagina showed no evidence of any aceto-white lesions Monsel solution used for hemostasis. The patient tolerated well . At the end the patient was instructed to call if temp>100.4, abdominal pain, n/v, bleeding; The patient was given the following instructions: nothing per vagina, no intercourse or bath tub use. All questions answered the patient verbalized understanding. Instructed the patient to make an appointment in 2 weeks for follow-up This note was generated with a voice recognition program. Some errors may have been overlooked during the review of this note. Sometimes these errors may affect the content or meaning of a given sentence. 26885-Wtiizcdee of cervix including upper vagina with biopsy and ECC Procedure code (CPT) selection complete Assessment & Plan Assessment & Plan (1) LGSIL on Pap smear of cervix: Code(s): R87.612 - Low grade squamous intraepithelial lesion on cytologic smear of cervix (LGSIL) Plan: Colposcopy done, see procedure note Orders: Orders AMB Colposcopy Today R87.612 - Low grade squamous intraepithelial lesion on cytologic smear of cervix (LGSIL) Coding Level of Care Code Procedure Only Diagnoses LGSIL on Pap smear of cervix R87.612 CPT Codes Colposcopy - CPT: 55218-Yaxnqrocb of cervix including upper vagina with biopsy and ECC ([id number])
[2023-09-29 14:49] VITALS: BP 122/76; BMI 38.4
== END 2023-09-29 15:03 | disposition home or self-care (01) ==
LOC: HO.HWS 14:40
PROVIDERS: PCP Internal Medicine; Visit Provider Obstetrics & Gynecology
DX: R87.612 Low grade squamous intraepithelial lesion on cytologic smear of cervix (LGSIL) (principal)
CPT/HCPCS: 57454

== ENCOUNTER 2023-10-13 15:56 | Outpatient (AMB) | payer OTHER, SELFPAY ==
--- NOTE | 2023-10-13 15:57 | MHC.OFFVIS ---
Intake Vital Signs 10/13/23 16:02 Height 5 ft 6 in Weight 238 lb 1.588 oz BMI 38.4 BP 124/82 Intake Visit Reasons: colpo results Allergies No Known Allergies [No Known Allergies*] Allergy (Verified 09/29/23 14:54) HPI HPI Comments History of Present Illness Details Presenting post colpo for follow-up. The patient is doing well with no complaints. The pathology showed the following: A. Endocervical curettage: Scant endocervical glandular epithelium; negative for dysplasia. B. Cervix, 5:00, biopsy: Scant endocervical glandular mucosa with inflammation, squamous metaplasia and biopsy site changes; negative for dysplasia. C. Cervix, 6:00, biopsy: Endocervical glandular mucosa with inflammation, squamous metaplasia and biopsy site changes; negative for dysplasia. D. Cervix, 11:00, biopsy: Scant endocervical glandular mucosa with inflammation and squamous metaplasia; negative for dysplasia. E. Cervix, 12:00, biopsy: Partially denuded endocervical glandular mucosa with inflammation, squamous metaplasia and biopsy site changes; negative for dysplasia [facility] Medical History Breast cancer screening by mammogram Cervical cancer screening Annual physical exam Mass of left lower leg Hyperkalemia Sebaceous cyst of eyelid Palpitations PVC (premature ventricular contraction) Mild sleep apnea GERD (gastroesophageal reflux disease) Fatty liver Hypertension Hypercholesterolemia Type 2 diabetes mellitus with hyperglycemia Vitamin D deficiency Obesity Surgical History History of cholecystectomy Family History Father No problems noted. Mother Hypertension Sister Schizophrenia Mental health disorder Paternal Grandfather No problems noted. Paternal Grandmother No problems noted. Maternal Grandmother No problems noted. Maternal Grandfather No problems noted. 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 Sexual orientation: Straight/Heterosexual Gender identity: Female Cognitive needs: No Hearing needs: No Vision needs: No Female Reproductive History Menstrual Age of Menarche: 11 Review of Systems Const All systems reviewed & are unremarkable except as noted in HPI and below Reports as per HPI and Reports no additional complaints GI Reports no additional complaints Reports no additional complaints Assessment & Plan Assessment & Plan (1) LGSIL on Pap smear of cervix: Comment: ELDER 1 in 05/11 Code(s): R87.612 - Low grade squamous intraepithelial lesion on cytologic smear of cervix (LGSIL) Plan: Discussed with the patient the pathology results of the colposcopy biopsies & endocervical curettage ( negative). Discussed with the patient the sensitivity specificity, positive and negative predictive value in detecting cervical cancer in addition discussed the regression, persistence and progression rates. Recommended co-testing in 12 months, if cytology and or HPV are abnormal will proceed was colposcopy biopsy and endocervical curettage, if lesions gets worse or stays persistent for 2 years will proceed with loop electric excision procedure. Instructions given to the patient to schedule a co test appointment in 1 year. All questions answered the patient verbalized understanding. Coding Level of Care Code Est Pt Level 3 (23689) Diagnoses LGSIL on Pap smear of cervix R87.612
[2023-10-13 16:02] VITALS: BP 124/82; BMI 38.4
== END 2023-10-13 16:13 | disposition home or self-care (01) ==
LOC: HO.HWS 15:56
PROVIDERS: PCP Internal Medicine; Visit Provider Obstetrics & Gynecology
DX: R87.612 Low grade squamous intraepithelial lesion on cytologic smear of cervix (LGSIL) (principal)
CPT/HCPCS: 99213

== ENCOUNTER → 2023-10-13 15:56 | Outpatient (BNVA) | payer OTHER, SELFPAY | PROVIDERS: PCP Internal Medicine; Visit Provider Obstetrics & Gynecology ==

== ENCOUNTER → 2023-10-15 15:30 | Outpatient (BNV) | payer OTHER, SELFPAY | PROVIDERS: PCP Internal Medicine; Visit Provider Radiology Diagnostic Radiology | DX: Z12.31 Encounter for screening mammogram for malignant neoplasm of breast (principal) | CPT/HCPCS: 77063; 77067 ==

== ENCOUNTER 2023-10-15 15:39 | Outpatient (REF) | payer OTHER, SELFPAY ==
--- NOTE | ~2023-10-15 | MM_ITS ---
EXAMINATION: MM SCREENING DIGITAL BREAST TOMOSYNTHESIS, BILATERAL CLINICAL INFORMATION: Screening. Asymptomatic. COMPARISON: Mammography: This study is compared with prior exams dating back to 2018. TECHNIQUE: Digital breast tomosynthesis is performed in both the craniocaudal and mediolateral oblique views along with computer-aided detection (CAD). Synthesized 2D images are generated from the tomosynthesis. FINDINGS: There are scattered areas of fibroglandular density (ACR BI-RADS breast composition Category b). There are no significant masses, abnormal calcifications, or other abnormalities. Few, benign calcifications are present in the right breast. MM/MM tomosynthesis screening BI IMPRESSION: No mammographic evidence of malignancy. ASSESSMENT: BI-RADS BI-RADS 2 - Benign Findings RECOMMENDATION: Routine annual mammography screening. 1 year F/U This examination should not preclude the clinical evaluation of a suspicious palpable abnormality. This patient's information was entered into a reminder system with a target due date for their next mammogram.
== END 2023-10-15 15:40 | disposition home or self-care (01) ==
LOC: HO.MAMMO 15:39
PROVIDERS: PCP Internal Medicine; Visit Provider Internal Medicine
DX: Z12.31 Encounter for screening mammogram for malignant neoplasm of breast (principal)
CPT/HCPCS: 77063; 77067

== ENCOUNTER 2024-03-30 12:44 | Outpatient (REF) | payer OTHER, SELFPAY ==
--- NOTE | ~2024-03-30 | XR_ITS ---
EXAMINATION: XR KNEE, RIGHT CLINICAL INFORMATION: Unilateral primary osteoarthritis right knee. COMPARISON: May 04, 2019 TECHNIQUE: AP standing view of bilateral knees as well as 2 views of the right knee. FINDINGS: AP standing view of the right knee demonstrates moderate medial compartment space narrowing with medial marginal osteophytes. Left knee: [id number]-[id number] joint effusion. Moderate tricompartmental osteophytes. Moderate narrowing of the medial and patellofemoral compartments. XR/XR knee RT 3V IMPRESSION: Moderate degenerative changes bilateral knees.
== END 2024-03-30 12:45 | disposition home or self-care (01) ==
LOC: HO.HOSX 12:44
PROVIDERS: Visit Provider Physician Assistant
DX: M17.11 Unilateral primary osteoarthritis, right knee (principal)
CPT/HCPCS: 73562

== ENCOUNTER 2024-03-30 15:08 | Outpatient (AMB) | payer OTHER, SELFPAY ==
--- NOTE | 2024-03-30 15:09 | A.OFFVIS_ITS ---
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 Patient reports bilateral knee pain with her right knee being the worse. States her pain is making it difficult to walk and stair use. Hx of cortisone injection to her right knee here at [facility] in 2019, states injection provided her with relief. She is requesting bilateral knee injections. Allergies sitagliptin [From Januvia] Adverse Reaction (Verified 03/30/24 15:23) unable to urinate Medication List - Last Reconciled 03/30/24 by Tino Thompson PA-C blood pressure monitor (Blood Pressure Kit) As directed blood-glucose meter,continuous (Dexcom G6 Residential Caregiver) As directed blood-glucose sensor (Dexcom G6 Sensor device) As directed blood-glucose transmitter (Dexcom G6 Transmitter device) As directed celecoxib (Celebrex) 200 mg PO BID 30 days cholecalciferol (vitamin D3) 50 mcg PO DAILY 90 days flash glucose sensor (FreeStyle Maria Del Carmen 14 Day Sensor kit) As directed semaglutide (Ozempic) 1 mg (0.75 mL) subcut QWEEK HPI HPI 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 She reports she has bilateral knee pain that is worse on her right knee. Her pain makes it difficult to ambulate and use stairs and wakes her up at night. She also experiences worsening limited ROM in her knees. She had a right knee injection in 2019 which provided her relief. She is interested in having a cortisone injection. She does have a history of diabetes. Her last A1c was 6.8 few months ago. [facility] Medical History Breast cancer screening by mammogram Cervical cancer screening Annual physical exam Mass of left lower leg Hyperkalemia Sebaceous cyst of eyelid Palpitations PVC (premature ventricular contraction) Mild sleep apnea GERD (gastroesophageal reflux disease) Fatty liver Hypertension Hypercholesterolemia Type 2 diabetes mellitus with hyperglycemia Vitamin D deficiency Obesity Surgical History History of cholecystectomy Family History Father No problems noted. Mother Hypertension Sister Schizophrenia Mental health disorder Paternal Grandfather No problems noted. Paternal Grandmother No problems noted. Maternal Grandmother No problems noted. Maternal Grandfather No problems noted. 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 Sexual orientation: Straight/Heterosexual Gender identity: Female Cognitive needs: No Hearing needs: No Vision needs: No Female Reproductive History Menstrual Age of Menarche: 11 Review of Systems Const All systems reviewed & are unremarkable except as noted in HPI and below Physical Exam Vital Signs: BMI result Body Mass Index 38.4 Const General: cooperative, healthy appearing, comfortable, no acute distress, well developed and alert Orientation/consciousness: patient oriented x3 HEENT Head: Yes normal to inspection, Yes normocephalic and Yes atraumatic Eyes General: appearance normal, both eyes and all related structures Resp Effort & Inspection: normal respiratory effort and able to speak in complete sentences Cardio Rate: regular rate Peripheral pulses: Peripheral pulses 2+ throughout GI Palpation (GI): Soft to palpation Skin Lesions: no lesions Rashes: no rashes Neuro General: patient oriented x3 Extrem Other: Right knee: Skin intact, no erythema or joint effusion. Tenderness along the medial and lateral joint line. Full ROM with crepitus. Negative Shayan?s. No ligamentous laxity. NVI. ? Results Reviewed Results Reviewed: Xrays were obtained in the office today and personally reviewed by me of the right knee show severe tricompartmental oa Assessment & Plan Assessment & Plan (1) Osteoarthritis of right knee: Code(s): M17.11 - Unilateral primary osteoarthritis, right knee Category: Medical Plan We discussed options which include PT, NSAIDs and injections. The patient will defer on the injection today and proceed with PT and NSAIDs. I did send a prescription of Celebrex to her pharmacy. If symptoms persist, she will contact me for an injection, otherwise, PRN. Orders: Orders XR knee RT 3V Today M17.11 - Unilateral primary osteoarthritis, right knee Medications: New celecoxib (Celebrex) 200 mg PO BID 60 caps 3RF 30 days Patient Instructions: Scribed for Tino Thompson PA-C, by Quan Rao medical technologist clinical, on 03/30/2024 at 3:00 PM EST.? I, Tino Thompson PA-C, have personally reviewed and agree with the information entered by the scribe. Coding Level of Care Code Global (99910) Diagnoses Osteoarthritis of right knee M17.11
[2024-03-30 15:27] VITALS: BMI 38.4
== END 2024-03-30 15:54 | disposition home or self-care (01) ==
PROVIDERS: PCP Internal Medicine; Visit Provider Physician Assistant
DX: M17.11 Unilateral primary osteoarthritis, right knee (principal)
CPT/HCPCS: 99214

== ENCOUNTER 2024-05-18 15:30 | Outpatient (AMB) | payer OTHER, SELFPAY ==
--- NOTE | 2024-05-18 15:32 | MHC.PC.OV ---
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 Accompanied by: Self / Same As Patient Allergies semaglutide [From Ozempic] Adverse Reaction (Unverified 05/18/24 15:39) Blurry Vision sitagliptin [From Januvia] Adverse Reaction (Verified 05/18/24 15:39) unable to urinate Medication List - Last Reconciled 05/18/24 by Demetrio Martinez MD blood pressure monitor (Blood Pressure Kit) As directed blood-glucose meter,continuous (Dexcom G6 Electronic Heat Seal Operator) As directed blood-glucose sensor (Dexcom G6 Sensor device) As directed blood-glucose transmitter (Dexcom G6 Transmitter device) As directed celecoxib (Celebrex) 200 mg PO BID 30 days cholecalciferol (vitamin D3) 50 mcg PO DAILY 90 days dulaglutide (Trulicity) 0.75 mg (0.5 mL) subcut QWEEK 30 days flash glucose sensor (FreeStyle Maria Del Carmen 14 Day Sensor kit) As directed semaglutide 0.25 mg (0.368 mL) subcut QWEEK 30 days Tobacco use date assessed: 05/18/24 Dental Screening Dental Screen Date: 05/18/24 Did you have a dental visit in the last 12 months?: Yes Did you have a dental problem in the last 6 months where you did not have access to dental care?: No Was dental information given to patient?: Patient has dentist HPI follow up HPI Details 58-year-old morbidly obese female with diabetes mellitus hypercholesterolemia hypertension fatty liver GERD last seen in June 2023. Patient's mammogram is due, colonoscopy is due. Review of the notes has been following up with orthopedics for the right knee pain advised PT and NSAIDs Celebrex. X-rays of the knee done shows moderate degenerative changes. had a reaction with semaglutide and better now with the trulicity. PAtient just started. no shots on the knee due to bs. celebrex is helping [facility] Medical History Breast cancer screening by mammogram Cervical cancer screening Annual physical exam Mass of left lower leg Hyperkalemia Sebaceous cyst of eyelid Palpitations PVC (premature ventricular contraction) Mild sleep apnea GERD (gastroesophageal reflux disease) Fatty liver Hypertension Hypercholesterolemia Type 2 diabetes mellitus with hyperglycemia Vitamin D deficiency Obesity Surgical History History of cholecystectomy Family History Father No problems noted. Mother Hypertension Sister Schizophrenia Mental health disorder Paternal Grandfather No problems noted. Paternal Grandmother No problems noted. Maternal Grandmother No problems noted. Maternal Grandfather No problems noted. 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 1. Little interest or pleasure in doing things: not at all 2. Feeling down, depressed, or hopeless: not at all 3. Trouble falling or staying asleep, or sleeping too much: not at all 4. Feeling tired or having little energy: not at all 5. Poor appetite or overeating: not at all 6. Feeling bad about yourself - or that you are a failure or have let yourself or your family down: not at all 7. Trouble concentrating on things, such as reading the newspaper or watching television: not at all 8. Moving or speaking so slowly that other people could have noticed. Or the opposite - being so fidgety or restless that you have been moving around a lot more than usual: not at all 9. Thoughts that you would be better off or of hurting yourself in some way: not at all Total score: 0 Depression Screening Interpretation: Negative Depression Screening Done: Yes Source: Developed by Drs. Jeff L. Klaudia Howell Kurt Kroenke and colleagues, with an educational bhupinder from [employer]. Thrive Questionnaire Date Thrive assessed: 05/18/24 I am a: Patient What is your living situation today?: I have a steady place to live Within the past 12 months, did the food you bought not last and you didn't have the money to get more?: Never true Within the past 12 months, did you worry whether your food would run out before you got money to buy more?: Never true THRIVE Score: 0 AUDIT C Alcohol Use Questionnaire (AUDIT-C) 1. How often do you have a drink containing alcohol?: Monthly or less 2. How many drinks containing alcohol do you have on a typical day when you are drinking?: 1 or 2 3. How often do you have six or more drinks on one occasion?: Never Total Score: 1 MARCELA-7 AMB Questionnaire MARCELA-7 Date MARCELA - 7 assessed: 05/18/24 Feeling nervous, anxious, or on edge: 0 = Not at all Not being able to stop or control worryin = Not at all Worrying too much about different things: 0 = Not at all Trouble relaxin = Not at all Being so restless that it is hard to sit still: 0 = Not at all Becoming easily annoyed or irritable: 0 = Not at all Feeling afraid as if something awful might happen: 0 = Not at all Total MARCELA-7 score (0-4 normal; 5-9 mild; 10-14 moderate; 15-21 severe): 0 Source: Developed by Drs. Jeff Howell, Donald Jefferson and colleagues, with an educational bhupinder from [employer]. MARCELA-7 Assessment Billing MARCELA-7 Assessment Tool: MARCELA-7 Assessment 34737 Physical exam (Primary Care) Vital Signs: Last Vital Signs Pulse 93 05/18/24 15:33 BP 128/80 05/18/24 15:33 Pulse Ox 96 05/18/24 15:33 Oxygen Delivery Method Room Air 05/18/24 15:33 BMI result Body Mass Index 40.8 Tobacco/Smoking Status: Tobacco use Status Tobacco use date assessed 05/18/24 05/18/24 15:43 Patient Tobacco Use Status Never used Tobacco 05/18/24 15:32 Tobacco use type Cigarette 05/18/24 15:43 e-Cigarette/Vaping Use Never Used 05/18/24 15:32 PHQ-9: PHQ-9 Score PHQ-9: Total score 0 05/18/24 15:43 Depression Screening Interpretation: Negative Thrive Assessment: Date of Thrive Assessment Date Thrive assessed 05/18/24 05/18/24 15:43 Const General: alert; No acute distress Eyes Conjunctivae: conjunctivae normal Resp Auscultation: clear to auscultation bilaterally Cardio Rate: regular rate Rhythm: regular rhythm GI Inspection: Yes normal to inspection Extrem General: Yes normal to inspection and No edema Results AMB Hemoglobin A1c AMB Hemoglobin A1c 9.6 % Last Edit by Ayala Hui CMA on 05/18/24 15:46 Results Reviewed Results Reviewed: Laboratory Last Values Hgb A1c (Clinic) 9.6 % (4.0-6.0) H 05/18/24 15:45 Assessment and Plan Assessment & Plan (1) Type 2 diabetes mellitus with hyperglycemia: Comment: decline HENRIETTA inhibitor, EYE [facility] Code(s): E11.65 - Type 2 diabetes mellitus with hyperglycemia Qualifiers: Diabetes mellitus buttermaker helper insulin use: without buttermaker helper use Qualified Code(s): E11.65 - Type 2 diabetes mellitus with hyperglycemia Plan: Decrease the amount of carbohydrate intake, pasta, bread, rice and potatoes are all sugar and that is aside from all the sweet stuff, remember that fruits are good but they are Sweet also. Hemoglobin A1c goal of less than 6.5. Patient has been prescribed Trulicity metformin (2) Hypercholesterolemia: Code(s): E78.00 - Pure hypercholesterolemia, unspecified Plan: Avoid fried foods, chicken skin, eggs, butter margarine, pastries and meat. Be it pork or beef they have a lot of cholesterol LDL goal of less than 100 and triglyceride of less than 150. Patient was advised to get blood work done (3) Fatty liver: Code(s): K76.0 - Fatty (change of) liver, not elsewhere classified Plan: Low-fat diet and exercise (4) GERD (gastroesophageal reflux disease): Code(s): K21.9 - Gastro-esophageal reflux disease without esophagitis Plan: Avoid the foods that causes that usually spicy foods, tomato products, juices, coffee, soda and foods that your sensitive to. After eating do not lie down, allow 3-4 hours before in lie down. And keep the head of bed above 30 degrees to avoid the acid from going up. (5) Generalized anxiety disorder: Code(s): F41.1 - Generalized anxiety disorder (6) Osteoarthritis of right knee: Code(s): M17.11 - Unilateral primary osteoarthritis, right knee Plan: Patient has met with Orthopedics and has advised physical therapy (7) Morbid obesity: Code(s): E66.01 - Morbid (severe) obesity due to excess calories Plan: Diet and exercise (8) Colon cancer screening: Code(s): Z12.11 - Encounter for screening for malignant neoplasm of colon Orders: Orders AMB Hemoglobin A1c Today E11.65 - Type 2 diabetes mellitus with hyperglycemia Referrals Gastroenterology Referral Z12.11 - Encounter for screening for malignant neoplasm of colon Medications: New blood sugar diagnostic (FreeStyle Lite Strips) As directed check the BS QD 100 ea 3RF E11.65 - Type 2 diabetes mellitus with hyperglycemia lancets (FreeStyle Lancets) As directed check BS QD 100 ea 3RF E11.65 - Type 2 diabetes mellitus with hyperglycemia blood-glucose meter (FreeStyle Lite Meter kit) As directed 1 ea 0RF E11.65 - Type 2 diabetes mellitus with hyperglycemia Changed From dulaglutide (Trulicity) 0.75 mg (0.5 mL) subcut QWEEK 30 days 2.5 mL 3RF E11.65 - Type 2 diabetes mellitus with hyperglycemia To dulaglutide 3 mg (0.5 mL) subcut QWEEK 30 days 2.5 mL 3RF E11.65 - Type 2 diabetes mellitus with hyperglycemia Refilled semaglutide 0.25 mg (0.368 mL) subcut QWEEK 30 days 3 mL 3RF E11.65 - Type 2 diabetes mellitus with hyperglycemia blood-glucose sensor (Dexcom G6 Sensor device) As directed 3 ea 12RF E10.9 - Type 1 diabetes mellitus without complications, E11.65 - Type 2 diabetes mellitus with hyperglycemia Discontinued flash glucose sensor (FreeStyle Maria Del Carmen 14 Day Sensor kit) Discontinued Reason: Doctor's Order As directed 6 kits 3RF E11.65 - Type 2 diabetes mellitus with hyperglycemia, I10 - Essential (primary) hypertension Coding Level of Care Code Est Pt Level 4 (66622) Diagnoses Type 2 diabetes mellitus with hyperglycemia, without long-term current use of insulin E11.65 Diabetes mellitus buttermaker helper insulin use: without mcc use Hypercholesterolemia E78.00 Fatty liver K76.0 GERD (gastroesophageal reflux disease) K21.9 Generalized anxiety disorder F41.1 Osteoarthritis of right knee M17.11 Morbid obesity E66.01 Colon cancer screening Z12.11 Additional Codes MARCELA-7 Assessment Billing - MARCELA-7 Assessment Tool: MARCELA-7 Assessment [id number] ([id number])
[2024-05-18 15:33] VITALS: BP 128/80; PULSE 93; O2SAT 96; BMI 40.8
== END 2024-05-18 16:15 | disposition home or self-care (01) ==
PROVIDERS: PCP Internal Medicine; Visit Provider Internal Medicine
DX: E11.65 Type 2 diabetes mellitus with hyperglycemia (principal); E66.01 Morbid (severe) obesity due to excess calories; Z68.41 Body mass index [BMI] 40.0-44.9, adult; E78.00 Pure hypercholesterolemia, unspecified; K76.0 Fatty (change of) liver, not elsewhere classified; K21.9 Gastro-esophageal reflux disease without esophagitis; F41.1 Generalized anxiety disorder; M17.11 Unilateral primary osteoarthritis, right knee; Z12.11 Encounter for screening for malignant neoplasm of colon
CPT/HCPCS: 83036; 99214

== ENCOUNTER 2024-07-27 16:28 | Outpatient (REF) | payer OTHER, SELFPAY ==
[2024-07-27 17:14] LABS: Appearance Urine Cloudy; Color Urine Dark Yellow; Glucose Urine UA Negative (Negative); Leukocyte Esterase Urine Moderate (2+) (Negative); Nitrite Urine Positive (Negative); UMIC TRIGGER UACC YES; Urine Blood Large (3+) (Negative); Urine Ketones Trace mg/dL (Negative); Urine Protein 30 (1+) mg/dL (Neg-Trace)
[2024-07-27 17:20] LABS: Bacteria Urine 3+ (None Seen); Hyaline Casts Urine 0-2 /LPF (0-2); RBC Urine >20 /HPF (0-2); UACC Culture Trigger YES; WBC Urine >50 /HPF (0-5)
== END 2024-07-27 16:29 | disposition home or self-care (01) ==
LOC: HO.LAB 16:28
PROVIDERS: PCP Internal Medicine; Visit Provider Internal Medicine
DX: R30.0 Dysuria (principal)
CPT/HCPCS: 81001; 87086; 87088; 87186

== ENCOUNTER 2024-08-14 15:02 | Outpatient (AMB) | payer OTHER, SELFPAY ==
[2024-08-14 15:07] VITALS: BP 130/82; PULSE 92; O2SAT 95; BMI 40.2
--- NOTE | 2024-08-14 15:07 | A.OFFPC_ITS ---
Vital Signs 08/14/24 15:07 Height 5 ft 6 in Weight 249 lb 0.2 oz BMI 40.2 BP 130/82 Blood Pressure Location Lt brachial Position Sitting Pulse 92 Pulse Source Pulse Oximeter Pulse Oximetry (%) 95 Oxygen Delivery Method Room Air Intake Visit Reasons: DM Allergies semaglutide [From Ozempic] Adverse Reaction (Verified 08/14/24 15:13) Blurry Vision sitagliptin [From Januvia] Adverse Reaction (Verified 08/14/24 15:13) unable to urinate Medication List - Last Reconciled 08/14/24 by Aline Huerta PA-C blood pressure monitor (Blood Pressure Kit) As directed blood sugar diagnostic (FreeStyle Lite Strips) As directed check the BS QD blood-glucose meter (FreeStyle Lite Meter kit) As directed blood-glucose meter,continuous (Dexcom G6 Laborer Driver) As directed blood-glucose sensor (Dexcom G6 Sensor device) As directed blood-glucose transmitter (Dexcom G6 Transmitter device) As directed celecoxib (Celebrex) 200 mg PO BID 30 days cholecalciferol (vitamin D3) 50 mcg PO DAILY 90 days dulaglutide 3 mg (0.5 mL) subcut QWEEK 30 days lancets (FreeStyle Lancets) As directed check BS QD semaglutide 0.25 mg (0.368 mL) subcut QWEEK 30 days Tobacco use date assessed: 05/18/24 Dental Screening Dental Screen Date: 05/18/24 HPI DM HPI Details 59-year-old female with past medical his tory of morbid obesity, diabetes mellitus, hypercholesterolemia, hypertension, fatty liver disease, GERD last seen April [address] Martinez coming in for follow up. Patient states she has been on her new dose of Trulicity for the last 3 months and has been able to get it weekly. Denies having any low blood sugars. She is interested in having a overhauler bus truck she does not know what foods she should be eating. [facility] Medical History Breast cancer screening by mammogram Cervical cancer screening Annual physical exam Mass of left lower leg Hyperkalemia Sebaceous cyst of eyelid Palpitations PVC (premature ventricular contraction) Mild sleep apnea GERD (gastroesophageal reflux disease) Fatty liver Hypertension Hypercholesterolemia Type 2 diabetes mellitus with hyperglycemia Vitamin D deficiency Obesity Surgical History History of cholecystectomy Family History Father No problems noted. Mother Hypertension Sister Schizophrenia Mental health disorder Paternal Grandfather No problems noted. Paternal Grandmother No problems noted. Maternal Grandmother No problems noted. Maternal Grandfather No problems noted. 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 How often do you have a drink containing alcohol?: Monthly or less 2. How many drinks containing alcohol do you have on a typical day when you are drinking?: 1 or 2 3. How often do you have six or more drinks on one occasion?: Never Total Score: 1 MARCELA-7 AMB Questionnaire MARCELA-7 Date MARCELA - 7 assessed: 05/18/24 Source: Developed by Drs. Jeff Howell, Klaudia Ramirez, Donald Phillip and colleagues, with an educational bhupinder from [employer]. Review of Systems Const Denies body aches, Denies chills, Denies fever(s) and Denies poor appetite Eyes Reports no additional complaints ENT Reports no additional complaints Card Denies chest pain, Denies lightheadedness and Denies dyspnea Resp Denies cough and Denies dyspnea GI Denies abdominal pain, Reports constipation, Denies diarrhea, Denies nausea and Denies vomiting Reports no additional complaints Musc Reports no additional complaints and Denies abnormal gait Skin/Breast Reports system reviewed and no additional complaints, except as documented Neuro Denies abnormal gait Psych Reports no additional complaints Physical exam (Primary Care) Vital Signs: Last Vital Signs Pulse 92 08/14/24 15:07 BP 130/82 08/14/24 15:07 Pulse Ox 95 08/14/24 15:07 Oxygen Delivery Method Room Air 08/14/24 15:07 BMI result Body Mass Index 40.2 Tobacco/Smoking Status: Tobacco use Status Tobacco use date assessed 05/18/24 08/14/24 15:13 Patient Tobacco Use Status Never used Tobacco 08/14/24 15:13 Tobacco use type Cigarette 08/14/24 15:13 e-Cigarette/Vaping Use Never Used 08/14/24 15:13 Thrive Assessment: Date of Thrive Assessment Date Thrive assessed 05/18/24 08/14/24 15:13 Const General: cooperative, healthy appearing, comfortable and no acute distress Orientation/consciousness: patient oriented x3 HENMT Head: Yes normocephalic Ears: hearing grossly normal bilaterally General nose exam: Normal external nose present Eyes General: appearance normal, both eyes and all related structures Conjunctivae: conjunctivae normal Neck Neck: Yes full ROM and Yes no lymphadenopathy Resp Effort & Inspection: normal respiratory effort Auscultation: clear to auscultation bilaterally, no crackles, no rales, no rhonchi and no wheezes Cardio Rate: regular rate Rhythm: regular rhythm Skin General skin exam: no rashes or lesions noted Neuro General: patient oriented x3 Gait exam (Neuro): Normal gait present Extrem General: Yes normal to inspection, Yes full ROM and No edema Psych Affect: normal affect Attitude: cooperative Insight: Good insight present (Psych) Judgement: Good judgement present (Psych) Results AMB Hemoglobin A1c AMB Hemoglobin A1c 7.6 % Last Edit by IVONNE Song on 08/14/24 15:22 Results Reviewed Results Reviewed: Laboratory Last Values Hgb A1c (Clinic) 7.6 % (4.0-6.0) H 08/14/24 08:22 Coding Level of Care Code Est Pt Level 3 (44326) Diagnoses Type 2 diabetes mellitus with hyperglycemia, without long-term current use of insulin E11.65 Diabetes mellitus director long term care insulin use: without director long term care use Morbid obesity E66.01 Essential hypertension I10 Hypertension type: essential hypertension Hypercholesterolemia E78.00 Assessment & Plan Assessment & Plan (1) Type 2 diabetes mellitus with hyperglycemia: Comment: decline HENRIETTA inhibitor, EYE [facility] Code(s): E11.65 - Type 2 diabetes mellitus with hyperglycemia Category: Medical Qualifiers: Diabetes mellitus director long term care insulin use: without director long term care use Qualified Code(s): E11.65 - Type 2 diabetes mellitus with hyperglycemia Plan: Decrease the amount of carbohydrates such as pasta, bread, rice, and potatoes and limit the amount of sweets. Although fruits are generally healthy they should be eaten in moderation as they are still high in sugar. Hemoglobin A1c goal of less than 7%. A1c 7.6 % today we will increase Trulicity at this time to 4.5 mg and follow up in 3 months. Nutrition referral placed today. (2) Morbid obesity: Code(s): E66.01 - Morbid (severe) obesity due to excess calories Category: Medical Plan: Healthy diet and regular exercise is encouraged. (3) Hypertension: Comment: Echo normal LV January 2018, echo normal LV September 2020 Holter normal Code(s): I10 - Essential (primary) hypertension Category: Medical Qualifiers: Hypertension type: essential hypertension Qualified Code(s): I10 - Essential (primary) hypertension Plan: Continue on current blood pressure medication. Avoid salt intake and encourage healthy diet and regular exercise. (4) Hypercholesterolemia: Code(s): E78.00 - Pure hypercholesterolemia, unspecified Category: Medical Plan: Avoid foods that are high in cholesterol such as red meat, fried foods, eggs and baked goods. Triglyceride goal of less than 150 and LDL goal of less than 100. Plan This note was constructed using voice recognition software. While every effort has been made to ensure accuracy and pilot plant technician, still areas may have been included sometimes these areas may affect the content or meeting of the given symptoms. Total time spent caring for the patient today was 20 minutes. This includes time spent before the visit reviewing the chart, time spent during the visit, and time spent after the visit and documentation. Orders: Orders AMB Hemoglobin A1c Today E11.65 - Type 2 diabetes mellitus with hyperglycemia Referrals Medical Nutrition Therapy Referral E11.65 - Type 2 diabetes mellitus with hyperglycemia Medications: Refilled blood-glucose transmitter (Dexcom G6 Transmitter device) As directed 1 ea 0RF E10.9 - Type 1 diabetes mellitus without complications, E11.65 - Type 2 diabetes mellitus with hyperglycemia
== END 2024-08-14 16:21 | disposition home or self-care (01) ==
PROVIDERS: PCP Internal Medicine
DX: E11.65 Type 2 diabetes mellitus with hyperglycemia (principal); E66.01 Morbid (severe) obesity due to excess calories; Z68.41 Body mass index [BMI] 40.0-44.9, adult; I10 Essential (primary) hypertension; E78.00 Pure hypercholesterolemia, unspecified

== ENCOUNTER → 2024-08-14 15:02 | Outpatient (BNVA) | payer OTHER, SELFPAY | PROVIDERS: PCP Internal Medicine | DX: E11.65 Type 2 diabetes mellitus with hyperglycemia (principal); E66.01 Morbid (severe) obesity due to excess calories; Z68.41 Body mass index [BMI] 40.0-44.9, adult; I10 Essential (primary) hypertension; E78.00 Pure hypercholesterolemia, unspecified | CPT/HCPCS: 83036 ==

== ENCOUNTER 2024-09-25 12:49 | Outpatient (AMB) | payer OTHER, SELFPAY ==
--- NOTE | 2024-09-25 13:05 | MHC.AMNUTRGE ---
VS Expanded 09/25/24 13:06 09/26/24 19:57 Height 5 ft 6 in 5 ft 6 in Weight 247 lb 5.738 oz 247 lb BMI 39.9 39.9 Intake Visit Reasons: T2DM/Confirmed Allergies semaglutide [From Ozempic] Adverse Reaction (Verified 09/26/24 13:49) Blurry Vision sitagliptin [From Januvia] Adverse Reaction (Verified 09/26/24 13:49) unable to urinate Nutrition Presentation Details: Pt presents for MNT for T2DM food frequency fruits: 3 /wk dairy: choosing lactose free most often vegetables: 3 times/wk fish : 2x/m starches > 20 /day pastries: 2 etoh: occ smoking: denies physical activity: ADL BS Monitoring Most Recent Diabetes Results: No Data to Display PIZ-Ojxifan-NxZully Equation Height: 5 ft 6 in Weight: 247 lb Resting Metabolic Rate: 1720.64 Calculated Activity Level: Sedentary Calories Needed to Maintain Weight: 2064.77 Diagnosis Nutrition problem #1: altered nutrition labs and food nutri know defi As related to (etiology) #1: diagnosis As evidenced by (sign/symptom) #1: knowledge deficit of diet [facility] Medical History (Updated 09/26/24 @ 14:42 by NATAN Patel) Well woman exam COVID-19 virus infection LGSIL on Pap smear of cervix Annual physical exam Right knee pain Colon cancer screening Breast cancer screening by mammogram Cervical cancer screening Mass of left lower leg Hyperkalemia Sebaceous cyst of eyelid Palpitations PVC (premature ventricular contraction) Mild sleep apnea GERD (gastroesophageal reflux disease) Fatty liver Hypertension Hypercholesterolemia Type 2 diabetes mellitus with hyperglycemia Vitamin D deficiency Obesity Surgical History (Updated 09/26/24 @ 14:44 by NATAN Patel) H/O colonoscopy History of cholecystectomy Family History Father No problems noted. Mother Hypertension Sister Schizophrenia Mental health disorder Paternal Grandfather No problems noted. Paternal Grandmother No problems noted. Maternal Grandmother No problems noted. Maternal Grandfather No problems noted. 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 Sexual orientation: Straight/Heterosexual Gender identity: Female Cognitive needs: No Hearing needs: No Vision needs: No Female Reproductive History Menstrual Age of Menarche: 11 Assessment & Plan Assessment & Plan (1) Type 2 diabetes mellitus with hyperglycemia: Code(s): E11.65 - Type 2 diabetes mellitus with hyperglycemia Category: Medical Qualifiers: Diabetes mellitus assisted insulin use: without termite exterminator use Qualified Code(s): E11.65 - Type 2 diabetes mellitus with hyperglycemia Plan: Wt: 112 Kg ( 10/13 ) Est kcal needs as per MSJ: 2100 (40% carb, 30% protein/fat) Est fluid needs as per 25-30 ml/d: 3400 Est prot per day as per 1 g/kg bw: 112 Recommend fiber intake : 8-10 g per day and gradually increase to 25-28 g per day for women and 35-38 g for men or as tolerated Recommend sodium intake per day : less than 2300 mg Educated patient on: ( R = reviewed V = verbalizes understanding N/R = needs review N/A = not applicable Food sources of carbohydrate, adequate serving sizes and its role in various health conditions: R Differences between complex carbohydrates a simple carbohydrates, role of fiber in diet: R V N/R Lean protein sources of foods: R V NR Differences between types of fats and role in diet (mono on saturated fat fatty acids, saturated fatty acids, trans fats): R Food sources of sodium in salt and healthy modifications for heart health in kidney health: R V R/V Vitamins and minerals: R V N/R Healthy plate method concept: R V N/R Physical activity: Benefits a precaution: R V N/R Hypoglycemia protocol (rule of 15): R V N/R Dietary prevention of Hyperglycemia: R Patient Instructions: Choose foods higher in fiber and lower calrorie : fruit/veg shakes, seeds see 2200 prasanna meal plan ideas high in fiber Coding Level of Care Code Nutr Indiv Intake (06102) Diagnoses Type 2 diabetes mellitus with hyperglycemia, without long-term current use of insulin E11.65 Diabetes mellitus termite exterminator insulin use: without assisted use Time Spent (min) 30
[2024-09-25 13:06] VITALS: BMI 39.9
[2024-09-27 10:36] VITALS: BMI 39.9
== END 2024-09-25 13:46 | disposition home or self-care (01) ==
PROVIDERS: PCP Internal Medicine; Visit Provider Dietitian, Registered
DX: E11.65 Type 2 diabetes mellitus with hyperglycemia (principal)

== ENCOUNTER → 2024-09-25 12:49 | Outpatient (BNVA) | payer OTHER, SELFPAY | PROVIDERS: PCP Internal Medicine; Visit Provider Dietitian, Registered | DX: E11.65 Type 2 diabetes mellitus with hyperglycemia (principal); Z71.3 Dietary counseling and surveillance | CPT/HCPCS: 97802 ==

== ENCOUNTER 2024-09-26 09:06 | Outpatient (REF) | payer OTHER, SELFPAY ==
[2024-09-27 11:20] LABS: HPV 16,18/45 See PAP report
== END 2024-09-26 09:07 | disposition home or self-care (01) ==
LOC: HO.LNP 09:06
PROVIDERS: PCP Internal Medicine; Visit Provider Obstetrics & Gynecology
DX: Z01.419 Encounter for gynecological examination (general) (routine) without abnormal findings (principal); Z11.51 Encounter for screening for human papillomavirus (HPV); Z72.89 Other problems related to lifestyle
CPT/HCPCS: 87626; 88175

== ENCOUNTER 2024-09-26 09:06 | Outpatient (AMB) | payer OTHER, SELFPAY ==
--- NOTE | 2024-09-26 09:09 | A.OFFVIS_ITS ---
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 No complaints. Last Pap/HPV was low-grade HAVEN, colpo biopsy ECC was negative Last Mammogram was BI-RADS 1 in 10/13 Last Colonoscopy was 7 years ago, the patient is scheduled to see GI today for a consult regarding screening colonoscopy [facility] Medical History (Updated 09/26/24 @ 10:01 by Juan Daniel Zepeda MD) Well woman exam COVID-19 virus infection LGSIL on Pap smear of cervix Annual physical exam Right knee pain Colon cancer screening Breast cancer screening by mammogram Cervical cancer screening Mass of left lower leg Hyperkalemia Sebaceous cyst of eyelid Palpitations PVC (premature ventricular contraction) Mild sleep apnea GERD (gastroesophageal reflux disease) Fatty liver Hypertension Hypercholesterolemia Type 2 diabetes mellitus with hyperglycemia Vitamin D deficiency Obesity Surgical History History of cholecystectomy Family History Father No problems noted. Mother Hypertension Sister Schizophrenia Mental health disorder Paternal Grandfather No problems noted. Paternal Grandmother No problems noted. Maternal Grandmother No problems noted. Maternal Grandfather No problems noted. 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 Sexual orientation: Straight/Heterosexual Gender identity: Female Cognitive needs: No Hearing needs: No Vision needs: No Female Reproductive History Menstrual Age of Menarche: 11 Total pregnancies: 5 Full term: 3 Ab spontaneous: 2 Date of last pap smear: 09/09/23 Date of Mammogram: 10/15/23 (bi rad 2) Review of Systems Const All systems reviewed & are unremarkable except as noted in HPI and below Card Reports as per HPI Resp Reports as per HPI GI Reports as per HPI and Reports no additional complaints Reports as per HPI Physical Exam Vital Signs: Last Vital Signs BP 128/80 09/26/24 09:15 BMI result Body Mass Index 39.9 Const General: cooperative, healthy appearing and comfortable Chest Chest palpation & inspection: normal inspection of the chest and normal palpation of entire chest wall Breast/axilla inspection: normal inspection of the breasts and normal inspection of the axillae Breast/axilla palpation: normal palpation of the breasts, normal palpation of the axillae and no axillary lymphadenopathy Resp Effort & Inspection: normal respiratory effort Auscultation: clear to auscultation bilaterally Percussion: percussion normal Cardio Palpation: normal PMI Rate: regular rate Rhythm: regular rhythm Heart sounds: no murmurs and no rubs Peripheral pulses: Peripheral pulses 2+ throughout GI Inspection: Yes normal to inspection Palpation (GI): Soft to palpation, nontender, no guarding, not rigid and No hepatosplenomegaly present Percussion: Yes normal to percussion Auscultation: normal bowel sounds Rectal Exam - Female: deferred General: Yes bladder normal to palpation External Female Exam: No lesion Speculum Exam - Vagina: normal appearance of the vagina, normal palpation, normal vaginal discharge and not erythematous Speculum Exam - Cervix: normal appearance of the cervix and normal palpation Bimanual exam- vagina & uterus: normal bimanual exam, normal palpation, uterine size normal, bladder normal to palpation, consistency normal and normal palpation Bimanual Exam- Adnexa, other: normal adnexae, no masses and no tenderness Assessment & Plan Assessment & Plan (1) Well woman exam: Comment: ELDER 1 in 05/11 LGSIL in 09/11 colpo biopsy negative Code(s): Z01.419 - Encounter for gynecological examination (general) (routine) without abnormal findings Category: Medical Plan: Co testing done. Counseled the patient about the recommended dietary allowance of 1200 mg of Calcium & 600 IU of vitamin D. Mammogram ordered. The patient is scheduled with GI today for a consult for screening colonoscopy . The patient was instructed to perform monthly self-breast exams and schedule annual exam in a year. All questions answered and the patient verbalized understanding. Orders: Orders MM tomosynthesis screening BI Today Z12.31 - Encounter for screening mammogram for malignant neoplasm of breast Coding Level of Care Code Est Pt Prev Care 40-64y(99617) Diagnoses Well woman exam Z01.419
[2024-09-26 09:15] VITALS: BP 128/80; BMI 39.9
== END 2024-09-26 10:09 | disposition home or self-care (01) ==
LOC: HO.HWS 09:06
PROVIDERS: PCP Internal Medicine; Visit Provider Obstetrics & Gynecology
DX: Z01.419 Encounter for gynecological examination (general) (routine) without abnormal findings (principal)
CPT/HCPCS: 99396; 99459

== ENCOUNTER 2024-09-26 13:34 | Outpatient (AMB) | payer OTHER, SELFPAY ==
[2024-09-26 13:39] VITALS: BP 124/58; PULSE 79; BMI 40.6
--- NOTE | 2024-09-26 13:39 | MHC.OFFVIS ---
Vital Signs 09/26/24 13:39 Height 5 ft 6 in Weight 251 lb 12.286 oz BMI 40.6 BP 124/58 L Blood Pressure Location Lt brachial Position Sitting Pulse 79 Intake Visit Reasons: Colonoscopy screening Intake Note: New patient in office today for colonoscopy screening. CC: Last colonoscopy about 7 years ago per patient here at [facility] [place]. She denies having any GI symptoms or concerns. Hospice Clinical Marketer Required: No Accompanied by: Self / Same As Patient Allergies semaglutide [From Ozempic] Adverse Reaction (Verified 09/26/24 13:49) Blurry Vision sitagliptin [From Januvia] Adverse Reaction (Verified 09/26/24 13:49) unable to urinate HPI HPI Colonoscopy screening: Details: 59-year-old female here for preprocedural meeting to discuss a screening colonoscopy. She is referred by Demetrio Martinez. PMX Morbid obesity ANNIE - pt denies never had a sleep study either Hypertension - pt denies High cholesterol - pt denies Diabetes Osteoarthritis right knee Anxiety Fatty liver Family history of colon polyps-mother - pt deniues * SURGICAL HISTORY Cholecystectomy Colonoscopy 2018-[place] small polyp that was lymphoid aggregates only * ALLERGIES Ozempic Januvia * [facility] LABS: No TODAY'S VISIT This is her second colonoscopy. PT DENIES ANNIE NEVER HAD A SLEEP STUDY ? computer error. She also denies HTN or high cholesterol. I advise her to ask her PCP about this. There are no prior problems with anesthesia or sedation. NO ID problems She had a lymphoid aggregate polyp removed in 2018 and her mother had colon polyps. She has a comment on a problem with numbness in her hands at night. I ordered an x-ray of her cervical spine since her Phalen's test is negative for carpal tunnel and she can pursue this with her primary care provider. [facility] Medical History (Updated 09/26/24 @ 14:42 by NATAN Patel) Well woman exam COVID-19 virus infection LGSIL on Pap smear of cervix Annual physical exam Right knee pain Colon cancer screening Breast cancer screening by mammogram Cervical cancer screening Mass of left lower leg Hyperkalemia Sebaceous cyst of eyelid Palpitations PVC (premature ventricular contraction) Mild sleep apnea GERD (gastroesophageal reflux disease) Fatty liver Hypertension Hypercholesterolemia Type 2 diabetes mellitus with hyperglycemia Vitamin D deficiency Obesity Surgical History (Updated 09/26/24 @ 14:44 by NATAN Patel) H/O colonoscopy History of cholecystectomy Family History Father No problems noted. Mother Hypertension Sister Schizophrenia Mental health disorder Paternal Grandfather No problems noted. Paternal Grandmother No problems noted. Maternal Grandmother No problems noted. Maternal Grandfather No problems noted. 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 Sexual orientation: Straight/Heterosexual Gender identity: Female Cognitive needs: No Hearing needs: No Vision needs: No Female Reproductive History Menstrual Age of Menarche: 11 Review of Systems Const Denies fatigue, Denies fever(s), Denies night sweats, Denies poor appetite and Denies weight loss ENT Reports Normal hearing present, Denies dental pain, Denies dysphagia, Denies hearing loss, Denies mouth pain, Denies odynophagia, Denies throat swelling, Denies tongue swelling and Reports other (Dentition adequate) Card Reports no additional complaints Resp Reports no additional complaints GI Details: Denies abdominal pain, Denies melena, Denies bloating, Denies hematochezia, Denies constipation, Denies GI cramping, Denies dysphagia, Denies excessive flatus, Denies early satiety, Denies heartburn, Denies diarrhea, Denies nausea, Denies odynophagia, Denies vomiting and Denies hematemesis Skin/Breast Denies pruritus, Denies lesions, Denies rash and Denies jaundice Neuro Reports Normal hearing present, Denies Abnormal speech present and Reports paresthesias Endo Denies fatigue Aller/Immun Denies throat swelling and Denies tongue swelling Physical Exam Vital Signs: Last Vital Signs Pulse 79 09/26/24 13:39 BP 124/58 L 09/26/24 13:39 BMI result Body Mass Index 40.6 Const General: cooperative, no acute distress, well developed and well groomed Nutritional Appearance: well nourished and obese morbidly obese Orientation/consciousness: oriented to person, oriented to place and oriented to time Limitations: No language barrier HEENT Head: Yes normocephalic and Yes atraumatic Eyes General: appearance normal, both eyes and all related structures Pupils: Equal, round and reactive pupils present Neck Neck: Yes normal visual inspection and Yes no lymphadenopathy Thyroid: Thyroid normal Resp Effort & Inspection: normal respiratory effort and able to speak in complete sentences Auscultation: clear to auscultation bilaterally Cardio Rate: regular rate Rhythm: regular rhythm Heart sounds: Normal, physiologic split S2 sound present Peripheral pulses: radial pulses present and posterior tibial pulses present GI Inspection: No distended, Yes Abdominal panniculus present and Yes obesity Palpation (GI): Soft to palpation, nontender, no guarding, not rigid and No hepatosplenomegaly present Percussion: Yes normal to percussion Auscultation: normal bowel sounds Rectal Exam - Female: deferred Abdomen image: 1. surgical scar Skin General skin exam: no rashes or lesions noted, turgor normal, skin not dry, no jaundice, No spider nevi and no striae Rashes: no rashes Nails: normal Neuro General: oriented to person, oriented to place and oriented to time Cranial nerves: Yes Equal, round and reactive pupils present and Yes Normal hearing present Speech: No Abnormal speech present Extrem General: Yes normal to inspection, No clubbing, No cyanosis and No edema Psych Appearance: grossly normal and well kempt Mental Status: mental status grossly normal Speech and movement: Normal speech and movement present Affect: normal affect Attitude: cooperative Thought process: Normal thought process present and not confabulating Thought content: Normal thought content present Insight: Good insight present (Psych) Judgement: Good judgement present (Psych) Assessment & Plan Assessment & Plan (1) Pre-op examination: Code(s): Z01.818 - Encounter for other preprocedural examination Category: Medical (2) Family history of polyps in the colon: Comment: MOTHER Code(s): Z83.719 - Family history of colon polyps, unspecified Category: Medical (3) Mild sleep apnea: Comment: December 2018-but patient denies this diagnosis saying she has never a sleep study Code(s): G47.30 - Sleep apnea, unspecified Category: Medical (4) Morbid obesity: Code(s): E66.01 - Morbid (severe) obesity due to excess calories Category: Medical (5) Hand paresthesia: Code(s): R20.2 - Paresthesia of skin Category: Medical Plan This is her second colonoscopy. PT DENIES ANNIE NEVER HAD A SLEEP STUDY ? computer error. She also denies HTN or high cholesterol. I advise her to ask her PCP about this. There are no prior problems with anesthesia or sedation. NO ID problems She had a lymphoid aggregate polyp removed in 2018 and her mother had colon polyps. She has a comment on a problem with numbness in her hands at night. I ordered an x-ray of her cervical spine since her Phalen's test is negative for carpal tunnel and she can pursue this with her primary care provider. She usually accompanies Ang Champion who is another patient of mine to his appointments! Orders: Orders Colonoscopy - GI Use Only Today E66.01 - Morbid (severe) obesity due to excess calories, G47.30 - Sleep apnea, unspecified, Z01.818 - Encounter for other preprocedural examination, Z83.719 - Family history of colon polyps, unspecified Complete Blood Count Auto Diff 05/18/24 E11.65 - Type 2 diabetes mellitus with hyperglycemia Comprehensive Met. Panel 05/18/24 E11.65 - Type 2 diabetes mellitus with hyperglycemia XR cervical spine 3V Today R20.2 - Paresthesia of skin Medications: New sodium,potassium,mag sulfates 17.5-3.13-1.6 gram (Suprep Bowel Prep Kit) 480 mL orally; FOR COLONOSCOPY PREP 354 mL 0RF Coding Level of Care Code New Pt Level 3 (77967) Diagnoses Pre-op examination Z01.818 Family history of polyps in the colon Z83.719 Mild sleep apnea G47.30 Morbid obesity E66.01 Hand paresthesia R20.2
== END 2024-09-26 14:26 | disposition home or self-care (01) ==
PROVIDERS: PCP Internal Medicine; Visit Provider Nurse Practitioner
DX: Z01.818 Encounter for other preprocedural examination (principal); Z12.11 Encounter for screening for malignant neoplasm of colon; Z86.0100 Personal history of colon polyps, unspecified; Z83.719 Family history of colon polyps, unspecified
CPT/HCPCS: 99202

== ENCOUNTER 2024-11-14 14:34 | Outpatient (AMB) | payer OTHER, SELFPAY ==
--- NOTE | 2024-11-14 14:37 | MHC.PC.OV ---
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 Accompanied by: Self / Same As Patient Allergies semaglutide [From Ozempic] Adverse Reaction (Verified 11/14/24 14:48) Blurry Vision sitagliptin [From Januvia] Adverse Reaction (Verified 11/14/24 14:48) unable to urinate Medication List - Last Reconciled 11/14/24 by Aline Huerta PA-C blood pressure monitor (Blood Pressure Kit) As directed blood sugar diagnostic (FreeStyle Lite Strips) As directed check the BS QD blood-glucose meter (FreeStyle Lite Meter kit) As directed blood-glucose meter,continuous (Dexcom G6 Employee Development Manager) As directed blood-glucose sensor (Dexcom G6 Sensor device) As directed blood-glucose transmitter (Dexcom G6 Transmitter device) As directed celecoxib 200 mg PO BID PRN cholecalciferol (vitamin D3) 50 mcg PO DAILY 90 days dulaglutide (Trulicity) 4.5 mg (0.5 mL) subcut QWEEK lancets (FreeStyle Lancets) As directed check BS QD sodium,potassium,mag sulfates 17.5-3.13-1.6 gram (Suprep Bowel Prep Kit) 480 mL orally; FOR COLONOSCOPY PREP Tobacco use date assessed: 11/14/24 Dental Screening Dental Screen Date: 11/14/24 Did you have a dental visit in the last 12 months?: Yes Did you have a dental problem in the last 6 months where you did not have access to dental care?: No Was dental information given to patient?: Patient has dentist HPI f/u DM HPI Details 59-year-old female with past medical history of morbid obesity, diabetes mellitus, hypercholesterolemia, hypertension, fatty liver disease, GERD last seen 07/2024 coming in for follow up. In review of the notes, patient was seen by [facility] 09/26/2024 for preop colonoscopy. Patient tells us today she is no longer seeing legal job titles as she felt they did not ?click?. She does mentioned her diet at home has been poor and is eating foods that are high in sugars and carbs. She does also have a concern of bilateral hand numbness and tingling primarily at night. She also mentions having difficulty falling asleep at night due to her mind racing and occasional muscle twitches. [facility] Medical History (Updated 11/14/24 @ 15:17 by Aline Huerta PA-C) Well woman exam COVID-19 virus infection LGSIL on Pap smear of cervix Annual physical exam Right knee pain Colon cancer screening Breast cancer screening by mammogram Cervical cancer screening Mass of left lower leg Hyperkalemia Sebaceous cyst of eyelid Palpitations PVC (premature ventricular contraction) Mild sleep apnea GERD (gastroesophageal reflux disease) Fatty liver Hypertension Hypercholesterolemia Type 2 diabetes mellitus with hyperglycemia Vitamin D deficiency Obesity Surgical History H/O colonoscopy History of cholecystectomy Family History Father No problems noted. Mother Hypertension Sister Schizophrenia Mental health disorder Paternal Grandfather No problems noted. Paternal Grandmother No problems noted. Maternal Grandmother No problems noted. Maternal Grandfather No problems noted. 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 1. Little interest or pleasure in doing things: not at all 2. Feeling down, depressed, or hopeless: not at all 3. Trouble falling or staying asleep, or sleeping too much: not at all 4. Feeling tired or having little energy: not at all 5. Poor appetite or overeating: not at all 6. Feeling bad about yourself - or that you are a failure or have let yourself or your family down: not at all 7. Trouble concentrating on things, such as reading the newspaper or watching television: not at all 8. Moving or speaking so slowly that other people could have noticed. Or the opposite - being so fidgety or restless that you have been moving around a lot more than usual: not at all 9. Thoughts that you would be better off or of hurting yourself in some way: not at all Total score: 0 Source: Developed by Drs. Jeff Howell, Klaudia Ramirez, Donald Phillip and colleagues, with an educational bhupinder from [employer]. Thrive Questionnaire Date Thrive assessed: 11/14/24 I am a: Patient What is your living situation today?: I have a steady place to live Within the past 12 months, did the food you bought not last and you didn't have the money to get more?: Never true Within the past 12 months, did you worry whether your food would run out before you got money to buy more?: Never true Do you have trouble paying for medicines?: No Do you have trouble getting transportation to medical appointments?: No Do you have trouble paying your heating and electricity bill?: No Do you have trouble taking care of your child, family member or friend?: No Do you have trouble with day-to-day activities such as bathing, preparing meals, shopping, managing finances, etc.?: No Are you currently unemployed and looking for a job?: No Are you interested in more education?: No Please select the resources that you would like help with: None Currently or been in a relationship where the following occur: No concerns reported THRIVE Score: 0 MARCELA-7 AMB Questionnaire MARCELA-7 Date MARCELA - 7 assessed: 11/14/24 Feeling nervous, anxious, or on edge: 0 = Not at all Not being able to stop or control worryin = Not at all Worrying too much about different things: 0 = Not at all Trouble relaxin = Not at all Being so restless that it is hard to sit still: 0 = Not at all Becoming easily annoyed or irritable: 0 = Not at all Feeling afraid as if something awful might happen: 0 = Not at all Total MARCELA-7 score (0-4 normal; 5-9 mild; 10-14 moderate; 15-21 severe): 0 Source: Developed by Drs. Jeff Howell, Klaudia Ramirez, Donald Phillip and colleagues, with an educational bhupinder from [employer]. Review of Systems Const Denies body aches, Denies chills, Denies fever(s), Denies headache(s) and Denies poor appetite Eyes Reports no additional complaints ENT Denies dizziness and Denies headache(s) Card Denies chest pain, Denies syncope, Denies edema, Denies irregular heart rhythm, Denies lightheadedness and Denies dyspnea Resp Denies cough and Denies dyspnea GI Denies abdominal pain, Denies constipation, Denies diarrhea, Denies nausea and Denies vomiting Reports no additional complaints Musc Reports no additional complaints and Denies abnormal gait Skin/Breast Reports system reviewed and no additional complaints, except as documented Neuro Denies abnormal gait, Denies dizziness, Denies syncope and Denies headache(s) Psych Reports no additional complaints Physical exam (Primary Care) BMI result Body Mass Index 40.7 Tobacco/Smoking Status: Tobacco use Status Tobacco use date assessed 05/18/24 11/14/24 14:37 Patient Tobacco Use Status Never used Tobacco 11/14/24 14:37 Tobacco use type Cigarette 11/14/24 14:37 e-Cigarette/Vaping Use Never Used 11/14/24 14:37 PHQ-9: PHQ-9 Score PHQ-9: Total score 0 11/14/24 14:42 Thrive Assessment: Date of Thrive Assessment Date Thrive assessed 11/14/24 11/14/24 14:42 Currently or been in a relationship where the following occur: No concerns reported Const General: cooperative, healthy appearing, comfortable and no acute distress Orientation/consciousness: patient oriented x3 [facility] Head: Yes normocephalic Ears: hearing grossly normal bilaterally General nose exam: Normal external nose present Eyes General: appearance normal, both eyes and all related structures Conjunctivae: conjunctivae normal Neck Neck: Yes full ROM and Yes no lymphadenopathy Resp Effort & Inspection: normal respiratory effort Auscultation: clear to auscultation bilaterally, no crackles, no rales, no rhonchi and no wheezes Cardio Rate: regular rate Rhythm: regular rhythm Skin General skin exam: no rashes or lesions noted Neuro General: patient oriented x3 Gait exam (Neuro): Normal gait present Extrem General: Yes normal to inspection, Yes full ROM and No edema Psych Affect: normal affect Attitude: cooperative Insight: Good insight present (Psych) Judgement: Good judgement present (Psych) Results AMB Hemoglobin A1c AMB Hemoglobin A1c 7.3 % Last Edit by IVONNE Villatoro on 11/14/24 14:48 Coding Level of Care Code Est Pt Level 4 (41135) Diagnoses Morbid obesity E66.01 GERD (gastroesophageal reflux disease) K21.9 Fatty liver K76.0 Type 2 diabetes mellitus with hyperglycemia, without long-term current use of insulin E11.65 Diabetes mellitus [facility] insulin use: without intermission coordinator use Hand paresthesia R20.2 Generalized anxiety disorder F41.1 Assessment & Plan Assessment & Plan (1) Morbid obesity: Code(s): E66.01 - Morbid (severe) obesity due to excess calories Category: Medical Plan: Healthy diet and regular exercise is encouraged. (2) GERD (gastroesophageal reflux disease): Code(s): K21.9 - Gastro-esophageal reflux disease without esophagitis Category: Medical Plan: Avoid trigger foods such as citrus, tomato products, soda, caffeine, spicy foods and other foods that may be irritating to your stomach. Avoid laying flat 3-4 hours after eating and elevate the head of the bed 30 degrees to prevent acid from moving into the esophagus. Not currently on medical management (3) Fatty liver: Code(s): K76.0 - Fatty (change of) liver, not elsewhere classified Category: Medical Plan: Healthy diet and regular exercise is encouraged. (4) Type 2 diabetes mellitus with hyperglycemia: Code(s): E11.65 - Type 2 diabetes mellitus with hyperglycemia Category: Medical Qualifiers: Diabetes mellitus intermission coordinator insulin use: without [facility] use Qualified Code(s): E11.65 - Type 2 diabetes mellitus with hyperglycemia Plan: Decrease the amount of carbohydrates such as pasta, bread, rice, and potatoes and limit the amount of sweets. Although fruits are generally healthy they should be eaten in moderation as they are still high in sugar. Hemoglobin A1c goal of less than 7%. Currently on Trulicity 4.5 mg. Plan to add Jardiance to medication regimen advised patient to reach out if patient was not covered by insurance. (5) Hand paresthesia: Code(s): R20.2 - Paresthesia of skin Category: Medical Plan: Bilateral hand numbness and tingling primarily at night. Discussed the use of bilateral hand splints at night to reduce inflammation. Advised patient to reach out if symptoms worsen or persist can consider EMG going forward. (6) Generalized anxiety disorder: Code(s): F41.1 - Generalized anxiety disorder Category: Medical Plan: Patient having difficulty falling asleep due to anxiety and occasional muscle twitches. Plan to start on hydroxyzine 25 mg as needed for sleep. Plan Patient was informed and verbally consented to the use of an ambient scribe clinic note documentation during this visit. This note was constructed using voice recognition software. While every effort has been made to ensure accuracy and sed middle school teacher, still areas may have been included sometimes these areas may affect the content or meeting of the given symptoms. Total time spent caring for the patient today was 20 minutes. This includes time spent before the visit reviewing the chart, time spent during the visit, and time spent after the visit and documentation. Orders: Orders Comprehensive Met. Panel Today Z00.00 - Encounter for general adult medical examination without abnormal findings UA CC w/rflx Micro + Cult Today R35.89 - Other polyuria AMB Hemoglobin A1c Today E11.65 - Type 2 diabetes mellitus with hyperglycemia Lipid Panel Today E78.00 - Pure hypercholesterolemia, unspecified TSH reflex Free T4 Today Z00.00 - Encounter for general adult medical examination without abnormal findings Microalbumin, Random (w Creat) Today E11.9 - Type 2 diabetes mellitus without complications Referrals Supervisor Plastering Nutrition Referral E11.65 - Type 2 diabetes mellitus with hyperglycemia Medications: New empagliflozin (Jardiance) 10 mg PO DAILY 30 tabs 0RF hydroxyzine HCl 25 mg PO BEDTIME PRN 30 tabs 0RF sleep
[2024-11-14 14:42] VITALS: BP 118/82; PULSE 96; O2SAT 98; BMI 40.7
== END 2024-11-14 15:14 | disposition home or self-care (01) ==
PROVIDERS: PCP Internal Medicine
DX: E11.65 Type 2 diabetes mellitus with hyperglycemia (principal); E66.01 Morbid (severe) obesity due to excess calories; Z68.41 Body mass index [BMI] 40.0-44.9, adult; K21.9 Gastro-esophageal reflux disease without esophagitis; K76.0 Fatty (change of) liver, not elsewhere classified; R20.2 Paresthesia of skin; F41.1 Generalized anxiety disorder

== ENCOUNTER → 2024-11-14 14:34 | Outpatient (BNVA) | payer OTHER, SELFPAY | PROVIDERS: PCP Internal Medicine | DX: E66.01 Morbid (severe) obesity due to excess calories (principal); Z68.41 Body mass index [BMI] 40.0-44.9, adult; K21.9 Gastro-esophageal reflux disease without esophagitis; K76.0 Fatty (change of) liver, not elsewhere classified; E11.65 Type 2 diabetes mellitus with hyperglycemia; R20.2 Paresthesia of skin; F41.1 Generalized anxiety disorder | CPT/HCPCS: 83036; 96127 ==

== ENCOUNTER 2025-01-30 13:30 | Outpatient (REF) | payer OTHER, SELFPAY | END 2025-01-30 13:31 | disposition home or self-care (01) | LOC: HO.MAMMO 13:30 | PROVIDERS: PCP Internal Medicine; Visit Provider Internal Medicine | DX: Z12.31 Encounter for screening mammogram for malignant neoplasm of breast (principal) | CPT/HCPCS: 77063; 77067 ==

== ENCOUNTER → 2025-01-30 13:45 | Outpatient (BNV) | payer OTHER, SELFPAY | PROVIDERS: PCP Internal Medicine; Visit Provider Internal Medicine | DX: Z12.31 Encounter for screening mammogram for malignant neoplasm of breast (principal) | CPT/HCPCS: 77063; 77067 ==

== ENCOUNTER 2025-02-13 12:29 | Emergency (ER) | payer OTHER, SELFPAY ==
[2025-02-13 13:03] VITALS: BP 146/107; PULSE 59; RESP 16; TEMP 36.6; O2SAT 100; BMI 40.3
--- NOTE | 2025-02-13 13:07 | ED_ITS ---
HPI - Abdominal Pain General Chief Complaint: Abdominal Pain Stated Complaint: Vomiting, diarrhea, weakness Time Seen by Provider: 02/13/25 17:06 Source: patient Mode of arrival: ambulatory Limitations: no limitations History of Present Illness ED Provider: Dr. Gisel Rojas HPI narrative: 59-year-old female with past medical history of HTN, HLD, diabetes, PVC, sleep apnea presenting with nausea, vomiting and diarrhea, diffuse abdominal pain ongoing since 8:00 a.m. this morning. Patient states she woke with dyspepsia which is sometime usual for her when she takes Trulicity however, shortly thereafter she developed profuse watery diarrhea with associated abdominal cramping. Shortly thereafter started vomiting, nonbilious, nonbloody emesis. No reported fever. Stools and vomiting are too numerous to count. Admits to eating some questionable steak last night. Also has been around some coworkers that have been ill with a stomach flu. No recent antibiotic use. No hematochezia or melena. 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,cont #1 ea 10/11/23 (Dexcom G6 Robotic Machine Operator) blood sugar diagnostic (FreeStyle #100 ea 05/18/24 Lite Strips) blood-glucose meter (FreeStyle #1 ea 05/18/24 Lite Meter kit) blood-glucose sensor (Dexcom G6 #3 ea 05/18/24 Sensor device) lancets 28 gauge (FreeStyle #100 ea 05/18/24 Lancets) blood-glucose transmitter (Dexcom #1 ea 08/14/24 G6 Transmitter device) sodium,potassium,mag sulfates 17.5 480 ml PO .COMPLEX #354 mL 09/26/24 gram-3.13 gram-1.6 gram oral soln (Suprep Bowel Prep Kit) dulaglutide 4.5 mg/0.5 mL 4.5 mg (0.5 mL) subcut QWEEK #2 mL 10/04/24 subcutaneous pen injector (Trulicity) hydroxyzine HCl 25 mg tablet 25 mg PO BEDTIME for insomnia #90 12/15/24 tabs empagliflozin 10 mg tablet 10 mg PO DAILY #30 tabs 01/16/25 (Jardiance) dicyclomine 20 mg tablet 20 mg PO TID #20 tabs 02/13/25 ondansetron 4 mg disintegrating 4 mg PO Q8H #10 tabs 02/13/25 tablet Allergies Allergy/AdvReac Type Severity Reaction Status Date / Time semaglutide [From Ozempic] AdvReac Blurry Verified 02/13/25 13:03 Vision sitagliptin [From Januvia] AdvReac unable to Verified 02/13/25 13:03 urinate Review of Systems Review of Systems Yes all other systems are reviewed and are negative FORMERLY [facility], [facility]–1983 Past Medical History Attestation statement: The following information was validated with the patient. Source: old records reviewed Medical History (Updated 02/13/25 @ 20:27 by Gisel Rojas DO) Well woman exam COVID-19 virus infection LGSIL on Pap smear of cervix Annual physical exam Right knee pain Colon cancer screening Breast cancer screening by mammogram Cervical cancer screening Mass of left lower leg Hyperkalemia Sebaceous cyst of eyelid Palpitations PVC (premature ventricular contraction) Mild sleep apnea GERD (gastroesophageal reflux disease) Fatty liver Hypertension Hypercholesterolemia Type 2 diabetes mellitus with hyperglycemia Vitamin D deficiency Obesity Surgical History H/O colonoscopy History of cholecystectomy Family History Family History Father No problems noted. Mother Hypertension Sister Schizophrenia Mental health disorder Paternal Grandfather No problems noted. Paternal Grandmother No problems noted. Maternal Grandmother No problems noted. Maternal Grandfather No problems noted. 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 Sexual orientation: Straight/Heterosexual Gender identity: Female Cognitive needs: No Hearing needs: No Vision needs: No Physical Exam ED Vital Signs: Vital Signs - 24 hr 02/13/25 13:03 02/13/25 17:12 02/13/25 19:37 Temperature 97.8 F 98.1 F 97.9 F Pulse Rate 59 90 74 Respiratory Rate 16 20 16 Blood Pressure 146/107 H 137/61 123/54 L Pulse Oximetry 100 95 100 Oxygen Delivery Method Room Air Room Air 02/13/25 20:13 Temperature 97.8 F Pulse Rate 80 Respiratory Rate 18 Blood Pressure 111/56 L Pulse Oximetry 96 Oxygen Delivery Method Room Air BMI result Body Mass Index 40.3 Exam: Constitutional: ?Well-appearing, no acute distress HEENT: ?No lymphadenopathy, neck is supple, trachea midline, PERRLA, EOMI, no nystagmus Chest: ?Equal rise, no crepitus, no deformities Respiratory: ?Lungs are clear to auscultation bilaterally, no wheezes/rales/rhonchi Cardio: ?Regular rate and rhythm, no murmurs rubs or gallops, peripheral pulses strong GI: ?Soft, nondistended, diffusely tender to palpation without rebound or guarding, positive bowel sounds in all quadrants : Deferred Skin: ?Warm, dry, no rashes Musculoskeletal: ?No deformities, normal tone Neuro: ?Alert and oriented, cranial nerves 2-12 intact, equal strength and sensation in bilateral upper and lower extremities Psych: ?Normal affect, appropriate mood, no visual or auditory hallucinations Course Course Course Narrative: This is a Rapid Medical Exam performed in triage by Mile Perez PA-C. Full HPI, ROS and PE to be performed by primary ED provider. 59-year-old female with past medical history of HTN, HLD, diabetes, PVC, sleep apnea presenting to the ED c/o nausea, vomiting, diarrhea and abdominal pain since 08:00. Denies bloody/melanotic stools, hematemesis PE: Appears uncomfortable, abdomen is soft diffusely tender, no rebound or guarding Plan: Labs, UA Medical Decision Making Medical Decision Making MDM Narrative: 29-year-old female with history of insulin-dependent diabetes presenting with nausea, vomiting and diarrhea ongoing since this morning. Positive sick contacts, questionable food intake last night. No evidence of severe infection or anemia. She is not in DKA. Plan for fluids, antiemetics and Toradol for the pain. Anticipate discharge after p.o. trial. 8:30 p.m. patient tolerating oral intake without issue. States she feels ?100% better?. Plan for discharge home and outpatient follow up with her primary tomorrow. Discharged in stable condition. Differential Diagnosis Differential Diagnoses: The differential diagnosis associated with the presentation includes Patient presents today with a chief complaint of vomiting and diarrhea.? Differential diagnosis includes surgical emergency such as obstruction, enteritis,? hyperglycemia, acidosis, food or drug ingestion, pancreatitis, CVA, allergic reaction such as? anaphylaxis, cannabis hyperemesis syndrome or cyclic vomiting syndrome, among many? others.?? Patient is not showing signs of acute dehydration or hemodynamic instability. They are having associated abdominal pain.?? Broad-based work-up was initiated based on above history and physical exam. Admission/Observation Consideration of admission/observation: Escalation of care including admission/observation considered Lab Data MDM Lab Attestation statement: I reviewed the patient's lab results. Blood sugar is notably elevated, no evidence of DKA. No elevated white blood cell count or anemia. Viral panel is negative. No evidence of UTI. 02/13/25 13:37 02/13/25 13:37 Labs: Lab Results 02/13/25 02/13/25 02/13/25 Range/Units 13:36 13:37 17:07 WBC 9.6 (4.8-10.8) X10*3/uL RBC 4.46 (4.20-5.50) X10*6/uL Hgb 14.2 (12.0-16.0) g/dl Hct 41.7 (37.0-47.0) % MCV 93.5 (80.0-98.0) fL MCH 31.8 (27.0-33.0) pg MCHC 34.1 (31.0-35.0) g/dl RDW 14.0 (11.0-16.0) % Plt Count 171 (160-400) X10*3/uL MPV 10.6 (9.4-12.3) fL Immature Gran % (Auto) 0.7 H (0.0-0.4) % Neut % (Auto) 78.6 H (45-73) % Lymph % (Auto) 15.9 L (20-40) % [place] % (Auto) 4.5 (2-11) % Eos % (Auto) 0.0 (0-4) % Baso % (Auto) 0.3 (0-2) % Lymph # (Auto) 1.5 (1.2-4.9) X10*3/uL [place] # (Auto) 0.4 (0.1-1.2) X10*3/uL Eos # (Auto) 0.0 (0.0-0.4) X10*3/uL Baso # (Auto) 0.0 (0.0-0.2) X10*3/uL Abs Immat Gran (auto) 0.07 H (0.00-0.03) X10*3/uL Absolute Neuts (auto) 7.5 (2.0-8.3) x10*3/uL Absolute Nucleated RBC 0.000 (0.0-0.012) X10*3/uL Nucleated RBC % (auto) 0.0 (0.0-0.2) /100WBC Sodium 141 (135-145) mmol/L Potassium 4.5 (3.3-5.1) mmol/L Chloride 104 (96-108) mmol/L Carbon Dioxide 27 (22-29) mmol/L Anion Gap 15 (12-20) BUN 15 (9-16) mg/dL Creatinine 1.10 (0.5-1.4) mg/dL Estim Creat Clear Calc 71.2 Estimated GFR 51 POC Glucose 185 H (60-115) mg/dL Random Glucose 258 H (60-115) mg/dL Calcium 9.4 (8.4-10.2) mg/dL Magnesium 1.6 (1.6-2.6) mg/dL Total Bilirubin 0.4 (0.0-1.0) mg/dL Direct Bilirubin 0.1 (0.0-0.5) mg/dL AST 32 H (5-31) U/L ALT 20 (0-31) U/L Alkaline Phosphatase 107 (39-117) U/L Total Protein 7.5 (6.5-8.0) g/dL Albumin 4.2 (3.5-5.0) g/dL Lipase 9 (8-78) U/L Urine Color Yellow Urine Appearance Clear Urine pH 5.5 (5.0-9.0) Ur Specific [place] 1.025 (1.005-1.025) Urine Protein Trace (Neg-Trace) mg/dL Urine Glucose (UA) >=1000 H (Negative) mg/dL Urine Ketones 15 (Negative) mg/dL Urine Blood Negative (Negative) Urine Nitrite Negative (Negative) Ur Leukocyte Esterase Negative (Negative) Urine RBC 0-2 (0-2) /HPF Urine WBC 0-5 (0-5) /HPF Ur Squamous Epith Cells 0-2 (0-2) /HPF Urine Bacteria None Seen (None Seen) Hyaline Casts 0-2 (0-2) /LPF Influenza Type A (PCR) NEGATIVE (Negative) Influenza Type B (PCR) NEGATIVE (Negative) RSV RNA Qual (PCR) NEGATIVE (Negative) SARS-CoV-2 RNA (RT-PCR) NEGATIVE (Negative) Medications Administered Discontinued Medications Generic Name Dose Route Start Last Admin Trade Name Freq PRN Reason Stop Dose Admin Lactated Ringer's 1,000 mls @ 999 mls/hr 02/13/25 17:41 02/13/25 18:19 Lr IV 02/13/25 18:41 999 mls/hr .Q1H1M ONE Administration Ketorolac Tromethamine 15 mg 02/13/25 17:41 02/13/25 18:19 Ketorolac Tromethamine 15 Mg/Ml Vial IVPUSH 02/13/25 17:42 15 mg ONCE ONE Administration Ondansetron HCl 4 mg 02/13/25 17:41 02/13/25 18:19 Ondansetron Hcl 4 Mg/2 Ml Vial IVPUSH 02/13/25 17:42 4 mg ONCE ONE Administration Discharge Plan Discharge Clinical Impression: Gastroenteritis, Toxic effect of ingested food Patient Disposition: Home, Self-Care Instructions: Gastroenteritis (DC) Additional Instructions: Follow-up with your primary care doctor as scheduled tomorrow. Return to the emergency department sooner with any new or worsening symptoms including: Worsening abdominal pain despite medication, inability to tolerate food or drink despite Zofran, fevers greater than 100?, any new symptom that concerns you. Prescriptions: New ondansetron 4 mg tablet,disintegrating 4 mg PO Q8H Qty: 10 0RF dicyclomine 20 mg tablet 20 mg PO TID Qty: 20 0RF No Action (DME) Dexcom G6 Robotic Machine Operator Misc See Rx Instructions .ROUTE .MEDSUPPLY Qty: 1 0RF Rx Instructions: As directed Trulicity 4.5 mg/0.5 mL pen injector 4.5 mg subcut QWEEK Qty: 2 3RF hydroxyzine HCl 25 mg tablet 25 mg PO BEDTIME Qty: 90 1RF Jardiance 10 mg tablet 10 mg PO DAILY Qty: 30 0RF cholecalciferol (vitamin D3) 50 mcg (2,000 unit) capsule 50 mcg PO DAILY 90 Days Qty: 90 3RF (DME) blood pressure monitor [Blood Pressure Kit] Kit See Rx Instructions .ROUTE .MEDSUPPLY Qty: 1 0RF Rx Instructions: As directed (DME) lancets [FreeStyle Lancets] 28 gauge misc See Rx Instructions .ROUTE .MEDSUPPLY Qty: 100 3RF Rx Instructions: As directed check BS QD (DME) FreeStyle Lite Strips Strip See Rx Instructions .ROUTE .MEDSUPPLY Qty: 100 3RF Rx Instructions: As directed check the BS QD (DME) blood-glucose meter [FreeStyle Lite Meter] Kit See Rx Instructions .ROUTE .MEDSUPPLY Qty: 1 0RF Rx Instructions: As directed (DME) Dexcom G6 Sensor Device See Rx Instructions .ROUTE .MEDSUPPLY Qty: 3 12RF Rx Instructions: As directed (DME) Dexcom G6 Transmitter Device See Rx Instructions .ROUTE .MEDSUPPLY Qty: 1 0RF Rx Instructions: As directed sodium,potassium,mag sulfates [Suprep Bowel Prep Kit] 17.5-3.13-1.6 gram recon soln 480 ml PO .COMPLEX Qty: 354 0RF Rx Instructions: 480 mL orally; FOR COLONOSCOPY PREP celecoxib 200 mg capsule 200 mg PO BID PRN Print Language: [place]
[2025-02-13 13:43] LABS: MANUAL DIFF FLAG NO
[2025-02-13 13:46] LABS: Appearance Urine Clear; Color Urine Yellow; Glucose Urine UA >=1000 mg/dL (Negative); Leukocyte Esterase Urine Negative (Negative); Nitrite Urine Negative (Negative); PH 5.5 (5.0-9.0); Specific Gravity - Urine 1.025 (1.005-1.025); UMIC TRIGGER UACC YES; Urine Blood Negative (Negative); Urine Ketones 15 mg/dL (Negative); Urine Protein Trace mg/dL (Neg-Trace)
[2025-02-13 13:49] LABS: Basophils Percent Auto 0.3 % (0-2); Hematocrit 41.7 % (37.0-47.0); Hemoglobin 14.2 g/dl (12.0-16.0); Imm Gran Abs Auto 0.07 X10*3/uL (0.00-0.03); Imm Gran Pct Auto 0.7 % (0.0-0.4); Lymphocytes Absolute Auto 1.5 X10*3/uL (1.2-4.9); Lymphocytes Percent Auto 15.9 % (20-40); Mean Corpuscular HGB Conc 34.1 g/dl (31.0-35.0); Mean Corpuscular Hemoglobin 31.8 pg (27.0-33.0); Mean Corpuscular Volume 93.5 fL (80.0-98.0); Mean Platelet Volume 10.6 fL (9.4-12.3); Monocytes Absolute Auto 0.4 X10*3/uL (0.1-1.2); Monocytes Percent Auto 4.5 % (2-11); Neutrophils Absolute Auto 7.5 x10*3/uL (2.0-8.3); Neutrophils Percent Auto 78.6 % (45-73); Platelet Count 171 X10*3/uL (160-400); Red Blood Count 4.46 X10*6/uL (4.20-5.50); White Blood Count 9.6 X10*3/uL (4.8-10.8)
[2025-02-13 13:53] LABS: Bacteria Urine None Seen (None Seen); Hyaline Casts Urine 0-2 /LPF (0-2); RBC Urine 0-2 /HPF (0-2); Squamous Epithelial Cell Urine 0-2 /HPF (0-2); WBC Urine 0-5 /HPF (0-5)
[2025-02-13 14:00] LABS: Alanine Aminotransferase 20 U/L (0-31); Albumin Level 4.2 g/dL (3.5-5.0); Alkaline Phosphatase 107 U/L (39-117); Anion Gap 15 (12-20); Aspartate Amino Transferase 32 U/L (5-31); Bilirubin Direct 0.1 mg/dL (0.0-0.5); Bilirubin Total 0.4 mg/dL (0.0-1.0); Blood Urea Nitrogen 15 mg/dL (9-16); Calcium 9.4 mg/dL (8.4-10.2); Carbon Dioxide 27 mmol/L (22-29); Chloride 104 mmol/L (96-108); Creatinine Clr Calc Pharmacy 71.2; Estimated Glomerular Filt Rate 51; Glucose Random 258 mg/dL (60-115); Lipase 9 U/L (8-78); Magnesium 1.6 mg/dL (1.6-2.6); Potassium 4.5 mmol/L (3.3-5.1); Sodium 141 mmol/L (135-145); Total Protein 7.5 g/dL (6.5-8.0)
[2025-02-13 14:24] LABS: Influenza A PCR NEGATIVE (Negative); Influenza B PCR NEGATIVE (Negative); Resp Syncy Virus RNA Qual PCR NEGATIVE (Negative); SARS COV2 PCR INHOUSE NEGATIVE (Negative)
[2025-02-13 17:11] LABS: Glucose, Whole Blood 185 mg/dL (60-115)
[2025-02-13 17:12] VITALS: BP 137/61; PULSE 90; RESP 20; TEMP 36.7; O2SAT 95
[2025-02-13] MEDS: Lactated Ringers 1,000 ML 999 ML IV (18:19)
[2025-02-13] MEDS: Ketorolac Tromethamine 15 MG/ML VIAL IVPUSH (18:19)
[2025-02-13] MEDS: ondansetron HCL 4 MG/2 ML VIAL IVPUSH (18:19)
[2025-02-13 19:37] VITALS: BP 123/54; PULSE 74; RESP 16; TEMP 36.6; O2SAT 100
[2025-02-13 20:13] VITALS: BP 111/56; PULSE 80; RESP 18; TEMP 36.6; O2SAT 96
[2025-02-13 20:52] VITALS: BP 111/56; PULSE 80; RESP 18; TEMP 36.6; O2SAT 96
== END 2025-02-13 20:52 | disposition home or self-care (01) ==
PROVIDERS: Physician Assistant; Emergency Provider Emergency Medicine; PCP Internal Medicine
DX: K52.9 Noninfective gastroenteritis and colitis, unspecified (principal); R11.2 Nausea with vomiting, unspecified; I10 Essential (primary) hypertension; Z03.818 Encounter for observation for suspected exposure to other biological agents ruled out; Z79.899 Other long term (current) drug therapy
CPT/HCPCS: 0241U; 80048; 80076; 81001; 82947; 83690; 83735; 85025; 96361; 96374; 96375; 99284; 99285; J1885; J2405; J7120

== ENCOUNTER 2025-03-13 15:28 | Outpatient (AMB) | payer OTHER, SELFPAY ==
--- NOTE | 2025-03-13 15:35 | A.OFFPC_ITS ---
Vital Signs 03/13/25 15:36 Height 5 ft 6 in Weight 249 lb BMI 40.2 BP 130/60 Blood Pressure Location Lt brachial Position Sitting Pulse 91 Pulse Source Pulse Oximeter Temp 97.3 F Temp Source Temporal Artery Scan Pulse Oximetry (%) 100 Oxygen Delivery Method Room Air Intake Visit Reasons: 3 months DM Intake Note: Patient is here to follow up on DM. Audio Visual Technician Required: No Feed Mill Lab Technician: Not Required per policy Accompanied by: Self / Same As Patient Allergies semaglutide (From Ozempic) Adverse Reaction (Verified 03/13/25 16:04) Blurry Vision sitagliptin (From Januvia) Adverse Reaction (Verified 03/13/25 16:04) unable to urinate Medication List - Last Reconciled 03/13/25 by Aline Huerta PA-C blood pressure monitor (Blood Pressure Kit) As directed blood sugar diagnostic (FreeStyle Lite Strips) As directed check the BS QD blood-glucose meter (FreeStyle Lite Meter kit) As directed blood-glucose sensor (Dexcom G6 Sensor device) As directed blood-glucose transmitter (Dexcom G6 Transmitter device) As directed blood-glucose,montessori program director,cont (Dexcom G6 Aged Or Disabled Carer) As directed cholecalciferol (vitamin D3) 50 mcg PO DAILY 90 days dulaglutide (Trulicity) 4.5 mg (0.5 mL) subcut QWEEK empagliflozin (Jardiance) 10 mg PO DAILY lancets (FreeStyle Lancets) As directed check BS QD sodium,potassium,mag sulfates 17.5-3.13-1.6 gram (Suprep Bowel Prep Kit) 480 mL orally; FOR COLONOSCOPY PREP Tobacco use date assessed: 03/13/25 Dental Screening Dental Screen Date: 11/14/24 HPI 3 months DM HPI Details 59-year-old female with past medical his tory of morbid obesity, diabetes mellitus, hypercholesterolemia, hypertension, fatty liver disease, GERD last seen 10/2024 coming in for follow up. Presenting for management of Type 2 Diabetes Mellitus and hyperlipidemia, along with concerns about sebaceous gland hyperplasia. The patient has been prescribed Jardiance but reports poor adherence due to confusion about timing and forgetfulness. Her last A1c was 7.7, up from 7.3, indicating suboptimal control. She also experiences nausea with Trulicity. The patient has not completed recent cholesterol testing. Previous tests were ordered but not performed due to lack of fasting. The patient has a history of sebaceous gland hyperplasia and has previously seen a sewing machines salesperson. She is concerned about the lesion's growth and potential scarring. [facility] Medical History Well woman exam COVID-19 virus infection LGSIL on Pap smear of cervix Annual physical exam Right knee pain Colon cancer screening Breast cancer screening by mammogram Cervical cancer screening Mass of left lower leg Hyperkalemia Sebaceous cyst of eyelid Palpitations PVC (premature ventricular contraction) Mild sleep apnea GERD (gastroesophageal reflux disease) Fatty liver Hypertension Hypercholesterolemia Type 2 diabetes mellitus with hyperglycemia Vitamin D deficiency Obesity Surgical History H/O colonoscopy History of cholecystectomy Family History Father No problems noted. Mother Hypertension Sister Schizophrenia Mental health disorder Paternal Grandfather No problems noted. Paternal Grandmother No problems noted. Maternal Grandmother No problems noted. Maternal Grandfather No problems noted. 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 1. Little interest or pleasure in doing things: not at all 2. Feeling down, depressed, or hopeless: not at all 3. Trouble falling or staying asleep, or sleeping too much: not at all 4. Feeling tired or having little energy: not at all 5. Poor appetite or overeating: not at all 6. Feeling bad about yourself - or that you are a failure or have let yourself or your family down: not at all 7. Trouble concentrating on things, such as reading the newspaper or watching television: not at all 8. Moving or speaking so slowly that other people could have noticed. Or the opposite - being so fidgety or restless that you have been moving around a lot more than usual: not at all 9. Thoughts that you would be better off or of hurting yourself in some way: not at all Total score: 0 Depression Screening Interpretation: Negative Depression Screening Done: Yes Source: Developed by Drs. Jeff Howell, Klaudia Ramirez, Donald Phillip and colleagues, with an educational bhupinder from [employer]. Thrive Questionnaire Date Thrive assessed: 02/14/25 I am a: Patient What is your living situation today?: I have a steady place to live Within the past 12 months, did the food you bought not last and you didn't have the money to get more?: Never true Within the past 12 months, did you worry whether your food would run out before you got money to buy more?: Never true Do you have trouble paying for medicines?: No Do you have trouble getting transportation to medical appointments?: No Do you have trouble paying your heating and electricity bill?: No Do you have trouble taking care of your child, family member or friend?: No Do you have trouble with day-to-day activities such as bathing, preparing meals, shopping, managing finances, etc.?: No Are you currently unemployed and looking for a job?: Yes Are you interested in more education?: No Please select the resources that you would like help with: None Currently or been in a relationship where the following occur: No concerns reported THRIVE Score: 0 AUDIT C Alcohol Use Questionnaire (AUDIT-C) 1. How often do you have a drink containing alcohol?: Monthly or less 2. How many drinks containing alcohol do you have on a typical day when you are drinking?: 1 or 2 3. How often do you have six or more drinks on one occasion?: Never Total Score: 1 MARCELA-7 AMB Questionnaire MARCELA-7 Date MARCELA - 7 assessed: 11/14/24 Feeling nervous, anxious, or on edge: 0 = Not at all Not being able to stop or control worryin = Not at all Worrying too much about different things: 0 = Not at all Trouble relaxin = Not at all Being so restless that it is hard to sit still: 0 = Not at all Becoming easily annoyed or irritable: 0 = Not at all Feeling afraid as if something awful might happen: 0 = Not at all Total MARCELA-7 score (0-4 normal; 5-9 mild; 10-14 moderate; 15-21 severe): 0 Source: Developed by Drs. Jeff Howell, Klaudia Ramirez, Donald Phillip and colleagues, with an educational bhupinder from [employer]. Review of Systems Const Denies body aches, Denies chills, Denies fever(s), Denies headache(s) and Denies poor appetite Eyes Reports no additional complaints ENT Denies dysphagia, Denies dizziness, Denies headache(s) and Denies odynophagia Card Denies chest pain, Denies syncope, Denies edema, Denies irregular heart rhythm, Denies lightheadedness and Denies dyspnea Resp Denies cough and Denies dyspnea GI Denies abdominal pain, Denies constipation, Denies dysphagia, Denies diarrhea, Denies nausea, Denies odynophagia and Denies vomiting Reports no additional complaints Musc Reports no additional complaints and Denies abnormal gait Skin/Breast Reports system reviewed and no additional complaints, except as documented Neuro Denies abnormal gait, Denies dizziness, Denies syncope and Denies headache(s) Psych Reports no additional complaints Physical exam (Primary Care) Vital Signs: Last Vital Signs Temp 97.3 F 03/13/25 15:36 Pulse 91 03/13/25 15:36 BP 130/60 03/13/25 15:36 Pulse Ox 100 03/13/25 15:36 Oxygen Delivery Method Room Air 03/13/25 15:36 BMI result Body Mass Index 40.2 Tobacco/Smoking Status: Tobacco use Status Tobacco use date assessed 03/13/25 03/13/25 15:47 Patient Tobacco Use Status Never used Tobacco 03/13/25 15:47 Tobacco use type 11/14/24 15:12 e-Cigarette/Vaping Use Never Used 03/13/25 15:47 PHQ-9: PHQ-9 Score PHQ-9: Total score 0 03/13/25 16:03 Depression Screening Interpretation: Negative Thrive Assessment: Date of Thrive Assessment Date Thrive assessed 02/14/25 03/13/25 15:47 Currently or been in a relationship where the following occur: No concerns reported Const General: cooperative, healthy appearing, comfortable and no acute distress Orientation/consciousness: patient oriented x3 HENMT Head: Yes normocephalic Ears: hearing grossly normal bilaterally General nose exam: Normal external nose present Eyes General: appearance normal, both eyes and all related structures Conjunctivae: conjunctivae normal Neck Neck: Yes full ROM and Yes no lymphadenopathy Resp Effort & Inspection: normal respiratory effort Auscultation: clear to auscultation bilaterally, no crackles, no rales, no rho nchi and no wheezes Cardio Rate: regular rate Rhythm: regular rhythm Skin General skin exam: no rashes or lesions noted Neuro General: patient oriented x3 Gait exam (Neuro): Normal gait present Extrem General: Yes normal to inspection, Yes full ROM and No edema Psych Affect: normal affect Attitude: cooperative Insight: Good insight present (Psych) Judgement: Good judgement present (Psych) Results AMB Hemoglobin A1c AMB Hemoglobin A1c 7.7 % Last Edit by IVONNE Carranza on 03/13/25 15:50 Results Reviewed Results Reviewed: Laboratory Last Values Hgb A1c (Clinic) 7.7 % (4.0-6.0) H 03/13/25 15:35 Coding Level of Care Code Est Pt Level 3 (05759) Diagnoses Essential hypertension I10 Hypertension type: essential hypertension Type 2 diabetes mellitus with hyperglycemia, without long-term current use of insulin E11.65 Diabetes mellitus assisted insulin use: without assisted use Obesity E66.9 GERD (gastroesophageal reflux disease) K21.9 Sebaceous cyst L72.3 Assessment & Plan Assessment & Plan (1) Hypertension: Comment: Echo normal LV January 2018, echo normal LV September 2020 Holter normal Code(s): I10 - Essential (primary) hypertension Category: Medical Qualifiers: Hypertension type: essential hypertension Qualified Code(s): I10 - Essential (primary) hypertension Plan: Avoid salt intake and encourage healthy diet and regular exercise. (2) Type 2 diabetes mellitus with hyperglycemia: Code(s): E11.65 - Type 2 diabetes mellitus with hyperglycemia Category: Medical Qualifiers: Diabetes mellitus predatory animal exterminator insulin use: without predatory animal exterminator use Slim lified Code(s): E11.65 - Type 2 diabetes mellitus with hyperglycemia Plan: Decrease the amount of carbohydrates such as pasta, bread, rice, and potatoes and limit the amount of sweets. Although fruits are generally healthy they should be eaten in moderation as they are still high in sugar. Hemoglobin A1c goal of less than 7%. A1c in the clinic today 7.7% She has not been taking her Jardiance and did miss her Trulicity one week. (3) Obesity: Code(s): E66.9 - Obesity, unspecified Category: Medical Plan: Healthy diet and regular exercise is encouraged. (4) GERD (gastroesophageal reflux disease): Code(s): K21.9 - Gastro-esophageal reflux disease without esophagitis Category: Medical Plan: Avoid trigger foods such as citrus, tomato products, soda, caffeine, spicy foods and other foods that may be irritating to your stomach. Avoid laying flat 3-4 hours after eating and elevate the head of the bed 30 degrees to prevent acid from moving into the esophagus. (5) Sebaceous cyst: Code(s): L72.3 - Sebaceous cyst Category: Medical Plan: Referral was placed to dermatology at patient request Plan The patient will restart Jardiance with instructions to take it at the same time daily to improve adherence and glycemic control. If side effects occur, alternative plans will be considered. Blood glucose monitoring will be emphasized to improve kidney function and prevent complications. Cholesterol testing will be completed once the patient is fasting for 8 to 10 hours. A referral to a sewing machines salesperson will be made for the sebaceous gland hyperplasia, with consideration for plastic surgery if necessary to minimize scarring. This note was constructed using voice recognition software. While every effort has been made to ensure accuracy and fire extinguisher charger, still areas may have been included sometimes these areas may affect the content or meeting of the given symptoms. Total time spent caring for the patient today was 20 minutes. This includes time spent before the visit reviewing the chart, time spent during the visit, and time spent after the visit and documentation. Patient was informed and verbally consented to the use of an ambient scribe for clinic note documentation during this visit. Orders: Orders AMB Hemoglobin A1c Today E11.65 - Type 2 diabetes mellitus with hyperglycemia Referrals Dermatology Referral L72.3 - Sebaceous cyst
[2025-03-13 15:36] VITALS: BP 130/60; PULSE 91; TEMP 36.3; O2SAT 100; BMI 40.2
--- OUTSIDE RECORDS SUMMARY | 2025-03-13 18:42 | XMS_ITS | Patient Health Record ---
Author Organization [facility] Address [address] [place] [address] Care Team Providers Care Mortarman Name Role Phone Demetrio Martinez Primary Care Provider Jake Luciano Unavailable [phone] Reason For Referral No Information Social History Tobacco use other than smoking: Question Answer Notes Are you an other tobacco user? No Problems Problem Type SNOMED Code ICD Code Onset Dates Problem Status W/U Status Risk Notes Problem Achilles bursitis ([id number]) Achilles tendinitis, left leg (M76.62) Active confirmed Plan Of Treatment No Information Insurance Providers Payer Name Payer Address Payer Phone Subscriber Number Group Number Insured Name Patient Relationship to Insured Coverage Start Date Coverage End Date [facility] [address] [place] [id number] Helio Mariee Spouse - patient is the spouse of the insured Medical (General) History Medical History History ICD Code Gall bladder problems Arthritis Back,Hip,and Knee pain Chicken pox Surgical History Surgery Date(Month/Year) cholecystectomy 2001
== END 2025-03-13 16:26 | disposition home or self-care (01) ==
LOC: HO.HMCH 15:29
PROVIDERS: PCP Internal Medicine
DX: E11.65 Type 2 diabetes mellitus with hyperglycemia (principal); E66.9 Obesity, unspecified; Z68.41 Body mass index [BMI] 40.0-44.9, adult; I10 Essential (primary) hypertension; K21.9 Gastro-esophageal reflux disease without esophagitis; L72.3 Sebaceous cyst

== ENCOUNTER → 2025-03-13 15:28 | Outpatient (BNVA) | payer OTHER, SELFPAY | PROVIDERS: PCP Internal Medicine | DX: E11.65 Type 2 diabetes mellitus with hyperglycemia (principal); E66.01 Morbid (severe) obesity due to excess calories; E78.00 Pure hypercholesterolemia, unspecified; I10 Essential (primary) hypertension; K21.9 Gastro-esophageal reflux disease without esophagitis; L72.3 Sebaceous cyst; Z68.41 Body mass index [BMI] 40.0-44.9, adult | CPT/HCPCS: 83036 ==

== ENCOUNTER 2025-07-05 10:11 | Day surgery (SDC) | payer OTHER, SELFPAY ==
--- OUTSIDE RECORDS SUMMARY | 2025-06-14 18:45 | XMS_ITS | Patient Health Record ---
Author Organization [facility] Address [address] [place] [address] Care Team Providers Care Studio Musician Name Role Phone Demetrio Martinez Primary Care Provider Jake Luciano Unavailable [phone] Reason For Referral No Information Social History Tobacco use other than smoking: Question Answer Notes Are you an other tobacco user? No Problems Problem Type SNOMED Code ICD Code Onset Dates Problem Status W/U Status Risk Notes Problem Achilles bursitis ([id number]) Achilles tendinitis, left leg (M76.62) Active confirmed Plan Of Treatment No Information Insurance Providers Payer Name Payer Address Payer Phone Subscriber Number Group Number Insured Name Patient Relationship to Insured Coverage Start Date Coverage End Date [facility] [address] [place] [phone] [id number] Helio Mariee Spouse - patient is the spouse of the insured Medical (General) History Medical History History ICD Code Gall bladder problems Arthritis Back,Hip,and Knee pain Chicken pox Surgical History Surgery Date(Month/Year) cholecystectomy 2001
[2025-07-03 10:48] VITALS: BMI 40.2
--- NOTE | 2025-07-03 11:42 | HO.ANESPROP2 ---
Documented by User: Mile Molina NP 07/03/25 11:43 HPI - Anesthesia Eval Consult details Narrative: 60 yr old female for colonoscopy BMI 40.2 Anesthesia Pre-Procedure Meds Is the patient on any of the following meds?: GLP1/DPP4 and SGLT2 Inhib PMFSH Active Problems Active Problems: All Active Problems Sebaceous cyst (Acute) Hand paresthesia (Acute) Pre-op examination (Acute) Family history of polyps in the colon (Acute) Morbid obesity (Acute) Osteoarthritis of right knee (Acute) Dysplasia of cervix, low grade (ELDER 1) (Acute) Generalized anxiety disorder (Acute) Mild sleep apnea (Acute) Vitamin D deficiency (Acute) GERD (gastroesophageal reflux disease) (Acute) Fatty liver (Acute) Hypercholesterolemia (Acute) Type 2 diabetes mellitus with hyperglycemia (Acute) Obesity (Acute) Past Medical History Medical History Well woman exam COVID-19 virus infection LGSIL on Pap smear of cervix Annual physical exam Right knee pain Colon cancer screening Breast cancer screening by mammogram Cervical cancer screening Mass of left lower leg Hyperkalemia Sebaceous cyst of eyelid Palpitations PVC (premature ventricular contraction) Mild sleep apnea GERD (gastroesophageal reflux disease) Fatty liver Hypertension Hypercholesterolemia Type 2 diabetes mellitus with hyperglycemia Vitamin D deficiency Obesity Family History Family History Father No problems noted. Mother Hypertension Sister Schizophrenia Mental health disorder Paternal Grandfather No problems noted. Paternal Grandmother No problems noted. Maternal Grandmother No problems noted. Maternal Grandfather No problems noted. 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 Sexual orientation: Straight/Heterosexual Gender identity: Female Cognitive needs: No Hearing needs: No Vision needs: No Meds Allergies Allergy/AdvReac Type Severity Reaction Status Date / Time semaglutide (From Ozempic) AdvReac Blurry Verified 03/13/25 16:04 Vision sitagliptin (From Januvia) AdvReac unable to Verified 03/13/25 16:04 urinate Exam Height,Weight and Vital Signs: Height 5 ft 6 in Weight 112.945 kg Documented by User: Vonnie Antoine MD 07/05/25 10:25 PMFSH Past Medical History Medical History Well woman exam COVID-19 virus infection LGSIL on Pap smear of cervix Annual physical exam Right knee pain Colon cancer screening Breast cancer screening by mammogram Cervical cancer screening Mass of left lower leg Hyperkalemia Sebaceous cyst of eyelid Palpitations PVC (premature ventricular contraction) Mild sleep apnea GERD (gastroesophageal reflux disease) Fatty liver Hypertension Hypercholesterolemia Type 2 diabetes mellitus with hyperglycemia Vitamin D deficiency Obesity Family History Family History Father No problems noted. Mother Hypertension Sister Schizophrenia Mental health disorder Paternal Grandfather No problems noted. Paternal Grandmother No problems noted. Maternal Grandmother No problems noted. Maternal Grandfather No problems noted. 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 Sexual orientation: Straight/Heterosexual Gender identity: Female Cognitive needs: No Hearing needs: No Vision needs: No Meds Allergies Allergy/AdvReac Type Severity Reaction Status Date / Time semaglutide (From Ozempic) AdvReac Blurry Verified 03/13/25 16:04 Vision sitagliptin (From Januvia) AdvReac unable to Verified 03/13/25 16:04 urinate Exam Airway Mallampati Class: II TM Dist: >3cm Neck ROM: Full Heart: rrr Lungs: cta Assessment and Plan Assessment Anesthesia Assessment: Anesthesia Plan Discussed and Chart Reviewed Final Anesthetic Review Family History of Problems with Anesthesia: No History of Problems with Anesthesia: No NPO: Yes ASA Class: II Final Preanesthetic Review: No Changes in Pt Med Stat, Meds/Allgs Chart Reviewed and Consent Obtained/Reviewed Patient Risk: Low Procedure Risk: Low Anesthetic Plan Anesthetic Plan: MAC: Disposition: Standard PACU
[2025-07-05 10:23] VITALS: BMI 40.5
[2025-07-05 10:25] VITALS: BP 138/74; PULSE 99; RESP 16; TEMP 35.6; O2SAT 99
--- NOTE | 2025-07-05 10:29 | MHC.SHP ---
Pre-Procedural Eval Section A - 24 Hr Update-Section A only Date of Service: 07/05/25 Section B - Complete if H&P > 30 days Chief Complaint: Family history of colon polyps, unspecified Details of Present Illness: Morbid obesity ANNIE - pt denies never had a sleep study either Hypertension - pt denies High cholesterol - pt denies Diabetes Osteoarthritis right knee Anxiety Fatty liver Family history of colon polyps-mother - pt deniues * SURGICAL HISTORY Cholecystectomy Colonoscopy 2018-Minor small polyp that was lymphoid aggregates only * ALLERGIES Ozempic Januvia * Present Medications: see Short Stay Collaborative assessment Allergies: Allergies Allergy/AdvReac Type Severity Reaction Status Date / Time semaglutide (From Ozempic) AdvReac Blurry Verified 03/13/25 16:04 Vision sitagliptin (From Januvia) AdvReac unable to Verified 03/13/25 16:04 urinate Review of Systems Review of Systems Comment: Ten point ROS negative Exam Exam Comment: Gen appear: No acute distress HEENT: no icterus Chest: No overt resp distress Abd: soft, nontender, nondistended Psych: Stable affect, answering questions appropriately Neuro: A/Ox3 noted to move all extremities spontaneously Ext: no peripheral edema Plan Diagnosis/Plan: Unchanged I have reviewed the history and physical and performed a pertinent physical examination on my patient. No changes have occurred unless specified. Time Spent With Patient Time: Total time managing care of this patient today ____ minutes.
[2025-07-05] MEDS: Lactated Ringers 1,000 ML 100 ML IVCONT (10:33)
[2025-07-05 10:35] LABS: Glucose, Whole Blood 147 mg/dL (60-115)
[2025-07-05 11:05] VITALS: BP 110/60; PULSE 86; RESP 16; TEMP 36.1; O2SAT 99
--- NOTE | 2025-07-05 11:07 | P.OPN-COLO_ITS ---
Colonoscopy Operative Note Operative Note Date of Service: 07/05/25 Narrative: Procedure: Colonoscopy Indication: Fam hx of polyps Endoscopist: Abimbola Denise MD Anesthesia Provider: Jaycee Najera CRNA Anesthesia type: MAC General Anesthesia Instrument: Olympus [id number] Consent: Indication, risks vs benefits, and alternatives were discussed with the patient who gave written informed consent to proceed. EKG, pulse, pulse oximetry and blood pressure were monitored throughout the procedure. Please see anesthesia flowsheet. Procedure: The patient was brought to the procedure room and placed in the left lateral decubitus position. An abdominal binder was affixed to the lower abdomen. IV medications were administered by the anesthesia provider in attendance. A digital rectal exam was performed which was abnormal due to finding of hemorrhoids. A distal attachment cap was affixed to the tip of the colonoscope which was then inserted through the anus and advanced through the colon to the cecum at 75 cm,and terminal ileum. Appendiceal orifice and ileocecal valve were identified. Mucosa was carefully examined under high definition white light as the instrument was slowly withdrawn in a retrograde panoramic fashion. Retroflexion was performed in rectum. The procedure was not difficult. There were no immediate obvious complications. The quality of the prep was BBPS: 3+2+3 = adequate Withdrawal time 7 minutes. Limitations: No limitations. Findings: Mucosa: Normal to cecum and terminal ileum. Protruding lesions: * Large internal hemorrhoids without stigmata of recent bleeding. Excavated lesions: * Moderate diverticulosis of whole colon. Impression: 1. Normal colon and terminal ileum mucosa 2. Diverticulosis 3. External and internal hemorrhoids Recommendations: - Repeat colonoscopy in 5 years if fam hx of CANCEROUS polyps in first degree relatives otherwise 10 years.
[2025-07-05 11:20] VITALS: BP 108/69; PULSE 71; RESP 14; O2SAT 100
[2025-07-05 11:26] VITALS: BP 117/51; PULSE 82; RESP 16; O2SAT 100
== END 2025-07-05 12:29 | disposition home or self-care (01) ==
PROVIDERS: PCP Internal Medicine; Visit Provider Internal Medicine
PROC: 0DJD8ZZ Inspection of Lower Intestinal Tract, Via Natural or Artificial Opening Endoscopic (ICD-10-PCS; CPT 45378; principal; 2025-07-05 11:40)
DX: Z12.11 Encounter for screening for malignant neoplasm of colon (principal); Z83.719 Family history of colon polyps, unspecified; K57.30 Diverticulosis of large intestine without perforation or abscess without bleeding; K64.8 Other hemorrhoids; K64.4 Residual hemorrhoidal skin tags; K76.0 Fatty (change of) liver, not elsewhere classified; K21.9 Gastro-esophageal reflux disease without esophagitis; E66.01 Morbid (severe) obesity due to excess calories; Z68.41 Body mass index [BMI] 40.0-44.9, adult; I10 Essential (primary) hypertension; E78.00 Pure hypercholesterolemia, unspecified; E11.65 Type 2 diabetes mellitus with hyperglycemia; G47.30 Sleep apnea, unspecified; R20.2 Paresthesia of skin; R00.2 Palpitations; E87.5 Hyperkalemia; Z79.85 Long-term (current) use of injectable non-insulin antidiabetic drugs; Z79.899 Other long term (current) drug therapy; Z88.8 Allergy status to other drugs, medicaments and biological substances; Z90.49 Acquired absence of other specified parts of digestive tract
CPT/HCPCS: 45378; 82947; J2003; J2704

== ENCOUNTER → 2025-07-05 10:11 | Outpatient (BNV) | payer OTHER, SELFPAY | PROVIDERS: PCP Internal Medicine; Visit Provider Internal Medicine | DX: Z12.11 Encounter for screening for malignant neoplasm of colon (principal); Z87.19 Personal history of other diseases of the digestive system; K57.90 Diverticulosis of intestine, part unspecified, without perforation or abscess without bleeding; K64.8 Other hemorrhoids | CPT/HCPCS: 45378 ==

== ENCOUNTER 2025-07-12 15:39 | Outpatient (AMB) | payer OTHER, SELFPAY ==
--- NOTE | 2025-07-12 15:46 | A.OFFPC_ITS ---
Vital Signs 07/12/25 15:48 Height 5 ft 6 in Weight 251 lb 2 oz BMI 40.5 BP 106/68 Blood Pressure Location Lt brachial Position Sitting Pulse 100 Pulse Source Pulse Oximeter Pulse Oximetry (%) 98 Oxygen Delivery Method Room Air Intake Visit Reasons: f/u DM w/ Po Glucose And Syrup Weigher Required: No Accompanied by: Self / Same As Patient Allergies semaglutide (From Ozempic) Adverse Reaction (Verified 07/12/25 15:47) Blurry Vision sitagliptin (From Januvia) Adverse Reaction (Verified 07/12/25 15:47) unable to urinate Medication List - Last Reconciled 07/12/25 by Demetrio Martinez MD blood pressure monitor (Blood Pressure Kit) As directed blood sugar diagnostic (FreeStyle Lite Strips) As directed check the BS QD blood-glucose meter (FreeStyle Lite Meter kit) As directed blood-glucose sensor (Dexcom G6 Sensor device) As directed blood-glucose transmitter (Dexcom G6 Transmitter device) As directed blood-glucose,client director,cont (Dexcom G6 Receiving Room Clerk) As directed cholecalciferol (vitamin D3) 50 mcg PO DAILY 90 days dulaglutide (Trulicity) 4.5 mg (0.5 mL) subcut QWEEK empagliflozin 25 mg PO DAILY lancets (FreeStyle Lancets) As directed check BS QD Tobacco use date assessed: 07/12/25 Dental Screening Dental Screen Date: 07/12/25 Did you have a dental visit in the last 12 months?: Yes Did you have a dental problem in the last 6 months where you did not have access to dental care?: No Was dental information given to patient?: Patient has [facility] Medical History Well woman exam COVID-19 virus infection LGSIL on Pap smear of cervix Annual physical exam Right knee pain Colon cancer screening Breast cancer screening by mammogram Cervical cancer screening Mass of left lower leg Hyperkalemia Sebaceous cyst of eyelid Palpitations PVC (premature ventricular contraction) Mild sleep apnea GERD (gastroesophageal reflux disease) Fatty liver Hypertension Hypercholesterolemia Type 2 diabetes mellitus with hyperglycemia Vitamin D deficiency Obesity Surgical History H/O colonoscopy History of cholecystectomy Family History Father No problems noted. Mother Hypertension Sister Schizophrenia Mental health disorder Paternal Grandfather No problems noted. Paternal Grandmother No problems noted. Maternal Grandmother No problems noted. Maternal Grandfather No problems noted. 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 Sexual orientation: Straight/Heterosexual Gender identity: Female Cognitive needs: No Hearing needs: No Vision needs: No Female Reproductive History Menstrual Age of Menarche: 11 Questionnaire Thrive Questionnaire Date Thrive assessed: 02/14/25 I am a: Patient What is your living situation today?: I have a steady place to live Within the past 12 months, did the food you bought not last and you didn't have the money to get more?: Never true Within the past 12 months, did you worry whether your food would run out before you got money to buy more?: Never true Do you have trouble paying for medicines?: No Do you have trouble getting transportation to medical appointments?: No Do you have trouble paying your heating and electricity bill?: No Do you have trouble taking care of your child, family member or friend?: No Do you have trouble with day-to-day activities such as bathing, preparing meals, shopping, managing finances, etc.?: No Are you currently unemployed and looking for a job?: Yes Are you interested in more education?: No Please select the resources that you would like help with: None Currently or been in a relationship where the following occur: No concerns reported THRIVE Score: 0 AUDIT C Alcohol Use Questionnaire (AUDIT-C) 1. How often do you have a drink containing alcohol?: Monthly or less 2. How many drinks containing alcohol do you have on a typical day when you are drinking?: 1 or 2 3. How often do you have six or more drinks on one occasion?: Never Total Score: 1 MARCELA-7 AMB Questionnaire MARCELA-7 Date MARCELA - 7 assessed: 11/14/24 Source: Developed by Drs. Jeff Howell, Klaudia Ramirez, Donald Phillip and colleagues, with an educational bhupinder from [employer]. Physical exam (Primary Care) Vital Signs: Last Vital Signs Pulse 100 07/12/25 15:48 BP 106/68 07/12/25 15:48 Pulse Ox 98 07/12/25 15:48 Oxygen Delivery Method Room Air 07/12/25 15:48 BMI result Body Mass Index 40.5 Tobacco/Smoking Status: Tobacco use Status Tobacco use date assessed 07/12/25 07/12/25 15:55 Patient Tobacco Use Status Never used Tobacco 07/12/25 15:55 Tobacco use type 11/14/24 15:12 e-Cigarette/Vaping Use Never Used 07/12/25 15:55 Thrive Assessment: Date of Thrive Assessment Date Thrive assessed 02/14/25 07/12/25 15:55 Currently or been in a relationship where the following occur: No concerns reported Const General: alert; No acute distress Eyes Conjunctivae: conjunctivae normal Resp Auscultation: clear to auscultation bilaterally Cardio Rate: regular rate Rhythm: regular rhythm GI Inspection: Yes normal to inspection Extrem General: Yes normal to inspection and No edema Office Procedures Flu Questionnaire Does the patient have a severe egg allergy?: No Does the patient have severe life threatening allergies?: No Does the patient have a fever or illness today?: No Has the patient ever had Guillain-[place] Syndrome?: No Has the patient ever had any past reaction to a flu shot?: No Results AMB Hemoglobin A1c AMB Hemoglobin A1c 7.4 % Last Edit by IVONNE Dozier on 07/12/25 16 :09 Immunizations Fluarix [id number] (PF) 45 mcg (15 mcg x 3)/0.5 mL IM syringe Performing Provider: Demetrio Martinez MD [facility] [place] [facility] Administered by: IVONNE Dozier on 07/12/25 16:41 Dose Route Admin Location Dispensed Lot Number Expiration Date [facility] Helmet Hat Puncher 0.5 mL IM Left Deltoid 0.5 mL [id number] 03/19/26 [id number] Patient [employer] VIS Given Date VIS Provided VIS Publication Date 07/12/25 Single Vaccine 24 Eligibility Eligibility Date Funding Source Not [facility] Eligible 07/12/25 Private Results Reviewed Results Reviewed: Laboratory Last Values Hgb A1c (Clinic) 7.4 % (4.0-6.0) H 07/12/25 16:08 Coding Level of Care Code Est Pt Level 4 (83009) Complex EM visit Add On G2211 Diagnoses Type 2 diabetes mellitus with hyperglycemia, without long-term current use of insulin E11.65 Diabetes mellitus shelter insulin use: without joint terminal attack controller use Morbid obesity E66.01 Hypercholesterolemia E78.00 Generalized anxiety disorder F41.1 GERD (gastroesophageal reflux disease) K21.9 Fatty liver K76.0 Assessment & Plan Assessment & Plan (1) Type 2 diabetes mellitus with hyperglycemia: Comment: [facility] Code(s): E11.65 - Type 2 diabetes mellitus with hyperglycemia Category: Medical Qualifiers: Diabetes mellitus shelter insulin use: without shelter use Qualified Code(s): E11.65 - Type 2 diabetes mellitus with hyperglycemia Plan: Decrease the amount of carbohydrate intake, pasta, bread, rice and potatoes are all sugar and that is aside from all the sweet stuff, remember that fruits are good but they are Sweet also. Hemoglobin A1c goal of less than 6.5. On Trulicity at 4.5 mg once a week Jardiance 10 mg once a day (2) Morbid obesity: Code(s): E66.01 - Morbid (severe) obesity due to excess calories Category: Medical Plan: Diet and exercise (3) Hypercholesterolemia: Code(s): E78.00 - Pure hypercholesterolemia, unspecified Category: Medical Plan: Avoid fried foods, chicken skin, eggs, butter margarine, pastries and meat. Be it pork or beef they have a lot of cholesterol LDL goal of less than 100 and triglyceride of less than 150 (4) Generalized anxiety disorder: Code(s): F41.1 - Generalized anxiety disorder Category: Medical Plan: Stable (5) GERD (gastroesophageal reflux disease): Code(s): K21.9 - Gastro-esophageal reflux disease without esophagitis Category: Medical Plan: Avoid the foods that causes that usually spicy foods, tomato products, juices, coffee, soda and foods that your sensitive to. After eating do not lie down, allow 3-4 hours before in lie down. And keep the head of bed above 30 degrees to avoid the acid from going up. (6) Fatty liver: Code(s): K76.0 - Fatty (change of) liver, not elsewhere classified Category: Medical Plan: Low-fat diet and exercise Plan History of Present Illness The patient is a 60-year-old female presenting for a follow-up visit for chronic conditions management and preventative care. The patient has a history of diabetes mellitus, with a current Hemoglobin A1c of 7.4, indicating suboptimal control. She is currently on Trulicity 4.5 mg once a week and Jardiance 10 mg once a day, with a goal to reduce A1c to below 6.5. The patient reports inconsistent medication adherence, which may contribute to the elevated A1c levels. The patient also has hypertension and hypercholesterolemia, with the last chol esterol test conducted in 2021. She is not currently on any antihypertensive medication, and her LDL cholesterol goal is less than 100 mg/dL. The patient has hepatic steatosis and gastroesophageal reflux disease (GERD), managed with dietary modifications and exercise. Anxiety disorder is also part of her medical history, and she has requested a prescription for Ativan PRN due to debilitating anxiety attacks. She acknowledges the addictive potential of Ativan and prefers to use it sparingly. Preventative care measures include a mammogram and colonoscopy, with the latter recommended every five years due to family history. Health Maintenance - Mammogram is due for breast cancer screening. - Colonoscopy is recommended every five years due to family history. - Fasting blood work for cholesterol is pending. - Flu vaccination administered during the visit. Social History - Exercise: Patient has started using a treadmill at home to improve physical activity. - Family: Son is in the , currently stationed in [place]. Review of Systems - Endocrine: Reports inconsistent medication adherence for diabetes management. - Psychiatric: Reports anxiety attacks, requests PRN medication for management. Physical Exam Results - Labs: Hemoglobin A1c is 7.4, indicating suboptimal diabetes control. - Tests: Colonoscopy performed in June 2025 was normal. Plan Patient was informed and verbally consented to the use of an ambient scribe for clinic note documentation during this visit. 1. Diabetes Mellitus The patient's diabetes mellitus is currently managed with Trulicity 4.5 mg once a week and Jardiance 10 mg once a day. The Hemoglobin A1c is 7.4, which is above the target of less than 6.5, indicating the need for better glycemic control. The patient has been inconsistent with medication adherence, which may contribute to the elevated A1c levels. An increase in Jardiance to 25 mg once a day has been prescribed to improve glycemic control. 2. Hypertension The patient is not currently on any antihypertensive medication. 3. Hypercholesterolemia The patient's LDL cholesterol goal is less than 100 mg/dL, and a fasting blood work for cholesterol is pending. 4. Hepatic Steatosis The patient is managing hepatic steatosis with dietary modifications and exercise. 5. Gastroesophageal Reflux Disease (Gerd) The patient is managing GERD with a no-fat diet and exercise. 6. Anxiety Disorder The patient has requested a prescription for Ativan PRN to manage anxiety attacks. She is aware of the addictive potential of Ativan and intends to use it sparingly. Discussion Notes During the visit, we discussed the management of the patient's diabetes, including the need to improve medication adherence and the adjustment of Jardi ance dosage to 25 mg once daily to achieve better glycemic control. We also reviewed the importance of regular cholesterol monitoring and the pending fasting blood work. The patient was advised on the management of GERD through dietary modifications and exercise. We discussed the use of Ativan PRN for anxiety management, emphasizing its addictive potential and the importance of using it sparingly. Preventative care measures, including the need for a mammogram and regular colonoscopy due to family history, were also addressed. Patient Instructions - Take Trulicity and Jardiance as prescribed to manage diabetes. - Schedule and complete fasting blood work for cholesterol. - Follow a no-fat diet and exercise regularly to manage GERD and hepatic steatosis. - Use Ativan PRN sparingly for anxiety attacks, being mindful of its addictive potential. - Schedule a mammogram and follow up on colonoscopy as per family history recommendations. Orders: Orders Comprehensive Met. Panel Today Z00.00 - Encounter for general adult medical examination without abnormal findings Microalbumin, Random (w Creat) Today E11.9 - Type 2 diabetes mellitus without complications Complete Blood Count Auto Diff Today E11.65 - Type 2 diabetes mellitus with hyperglycemia Vitamin B12 and Folate Today E11.65 - Type 2 diabetes mellitus with hyperglycemia Free T4 (Free Thyroxine) Today E11.65 - Type 2 diabetes mellitus with hyperglycemia Influenza [id number] Immunization Today Z23 - Encounter for immunization AMB Hemoglobin A1c Today Z13.9 - Encounter for screening, unspecified Lipid Panel Today E78.00 - Pure hypercholesterolemia, unspecified Thyroid Stimulating Hormone Today E11.65 - Type 2 diabetes mellitus with hyperglycemia Medications: New lorazepam 0.5 mg PO BEDTIME PRN 10 tabs 0RF anxiety F41.1 - Generalized anxiety disorder Changed From empagliflozin (Jardiance) 10 mg PO DAILY 30 tabs 0RF E11.65 - Type 2 d iabetes mellitus with hyperglycemia To empagliflozin 25 mg PO DAILY 90 tabs 3RF E11.65 - Type 2 diabetes mellitus with hyperglycemia From dulaglutide (Trulicity) 4.5 mg (0.5 mL) subcut QWEEK 2 mL 3RF E11.65 - Type 2 diabetes mellitus with hyperglycemia To dulaglutide (Trulicity) 4.5 mg (0.5 mL) subcut QWEEK 6.5 mL 3RF 90 days E11.65 - Type 2 diabetes mellitus with hyperglycemia
[2025-07-12 15:48] VITALS: BP 106/68; PULSE 100; O2SAT 98; BMI 40.5
--- OUTSIDE RECORDS SUMMARY | 2025-07-12 19:15 | XMS_ITS | Patient Health Record ---
[facility] Organization [facility] Address [address] [place] [address] Care Team Providers Care Marketing Support Manager Name Role Phone Demetrio Martinez Primary Care Provider Jake Luciano Unavailable [phone] Reason For Referral No Information Social History Tobacco use other than smoking: Question Answer Notes Are you an other tobacco user? No Problems Problem Type SNOMED Code ICD Code Onset Dates Problem Status W/U Status Risk Notes Problem Achilles bursitis ([id number]) Achilles tendinitis, left leg (M76.62) Active confirmed Plan Of Treatment No Information Insurance Providers Payer Name Payer Address Payer Phone Subscriber Number Group Number Insured Name Patient Relationship to Insured Coverage Start Date Coverage End Date [facility] [address] [place] [phone] [id number] Helio Mariee Spouse - patient is the spouse of the insured Medical (General) History Medical History History ICD Code Gall bladder problems Arthritis Back,Hip,and Knee pain Chicken pox Surgical History Surgery Date(Month/Year) cholecystectomy 2001
== END 2025-07-12 16:45 | disposition home or self-care (01) ==
LOC: HO.HMCH 15:39
PROVIDERS: PCP Internal Medicine; Visit Provider Internal Medicine
DX: E11.65 Type 2 diabetes mellitus with hyperglycemia (principal); E66.01 Morbid (severe) obesity due to excess calories; Z68.41 Body mass index [BMI] 40.0-44.9, adult; E78.00 Pure hypercholesterolemia, unspecified; F41.1 Generalized anxiety disorder; K21.9 Gastro-esophageal reflux disease without esophagitis; K76.0 Fatty (change of) liver, not elsewhere classified; Z23 Encounter for immunization

== ENCOUNTER → 2025-07-12 15:39 | Outpatient (BNVA) | payer OTHER, SELFPAY | PROVIDERS: PCP Internal Medicine; Visit Provider Internal Medicine | DX: E11.65 Type 2 diabetes mellitus with hyperglycemia (principal); E66.01 Morbid (severe) obesity due to excess calories; E78.00 Pure hypercholesterolemia, unspecified; F41.1 Generalized anxiety disorder; K21.9 Gastro-esophageal reflux disease without esophagitis; I10 Essential (primary) hypertension; K76.0 Fatty (change of) liver, not elsewhere classified; F41.9 Anxiety disorder, unspecified; Z23 Encounter for immunization; Z68.41 Body mass index [BMI] 40.0-44.9, adult | CPT/HCPCS: 83036; 90471; 90656 ==